=== PATIENT | female | born 1930 | race Caucasian/White ===

== ENCOUNTER 2018-12-07 16:04 | Observation (INO) | payer MEDICARE ==
[2018-12-07] MEDS ORDERED: Sodium Chloride 0.9% 1000 ML 1,000 ML IV SCH (17:00)
[2018-12-07 17:41] LABS: BASOPHIL % 0.5 % (0.0-0.4); Basophil (Absolute #) 0.03 (0-0.4); Eosinophil % 10.3 % (0.00-5.0); Eosinophil (Absolute #) 0.68 (0-0.5); Granulocyte Absolute (ANC) 1.82 (1.4-6.9); Granulocytes % 27.4 % (36.0-66.0); Hematocrit 36.8 % (35-47); Hemoglobin 11.4 gm/dl (12.0-16.0); Lymphocyte (Absolute #) 3.43 (1.0-4.6); Lymphocytes % 51.7 % (24.0-44.0); Mean Cell Volume 91.3 fl (78-100); Mean Platelet Volume 10.1 fl (6-9.5); Monocyte (Absolute #) 0.67 (0.0-1.3); Monocytes % 10.1 % (0.0-12.0); Platelet Count 225 K/mm3 (150-450); Red Blood Count 4.03 M/mm3 (4.1-5.4); White Blood Count 6.6 K/mm3 (4.0-10.5)
[2018-12-07 17:42] LABS: Mean Corpuscular Hemoglobin 28.2 pg (26-32)
[2018-12-07 17:54] LABS: ALBUMIN 4.4 g/dL (3.5-5.0); ALKALINE PHOSPHATASE 107 U/L (38-126); ANION GAP 14.6 MEQ/L (5-15); BLOOD UREA NITROGEN 10 mg/dL (7-17); CHLORIDE 102 mmol/L (98-107); Calcium 9.3 mg/dL (8.4-10.2); Carbon Dioxide 26 mmol/L (22-30); Creatinine 1 0.68 mg/dL (0.52-1.04); Glucose 257 mg/dL (74-106); SGOT/AST 46 U/L (14-36); SGPT/ALT 20 U/L (0-35); SODIUM 138 mmol/L (137-145)
[2018-12-07] MEDS: NovoLOG Insulin SQ PRN (18:03)
[2018-12-07] MEDS ORDERED: Ativan 0.5 MG PO PRN (18:30)
[2018-12-07] MEDS: Neurontin 400 MG PO SCH (21:00)
[2018-12-07] MEDS: ANTIVERT 25 MG PO SCH ×2 (21:00→21:02)
[2018-12-08 01:58] LABS: Appearance CLEAR (CLEAR); Bilirubin NEGATIVE (NEGATIVE); Blood NEGATIVE Ery/ul (0-5); Glucose >=500 mg/dL (NEGATIVE); Ketones NEGATIVE (NEGATIVE); Leukocyte Esterase MODERATE (NEGATIVE); Nitrite NEGATIVE (NEGATIVE); Protein,Urine Dip NEGATIVE (Negative); RBC 0-2 /HPF (0-2); Specific Gravity 1.008 (1.005-1.025); Urobilinogen NEGATIVE mg/dL (0-1); WBC 26-50 /HPF (0-5)
[2018-12-08 07:14] VITALS: BP 142/65; PULSE 65; O2SAT 95
[2018-12-08] MEDS ORDERED: NovoLOG Insulin SQ SCH (07:30)
--- NOTE | 2018-12-08 07:43 | PCM.HP.ADD ---
Addendum to History & Physical - History & Physical Addendum Addendum to History & Physical: This certifies that the History & Physical in the electronic chart reflects the current health status of the patient. If there are changes in the H&P these changes/exceptions are listed as follows.
--- NOTE | 2018-12-08 07:45 | PCM.NOTE ---
Date and Time: 12/08/18742 Subjective Assessment: doing ok, accuchecks are running high, no chest pain - Review of Systems Constitutional: No Fever, No Chills Eyes: No Symptoms Ears, Nose, & Throat: No Symptoms Respiratory: No Cough, No Short Of Breath Cardiac: No Chest Pain, No Edema, No Syncope Abdominal/Gastrointestinal: No Abdominal Pain, No Nausea, No Vomiting, No Diarrhea Genitourinary Symptoms: No Dysuria Musculoskeletal: No Back Pain, No Neck Pain Skin: No Rash Neurological: No Dizziness, No Focal Weakness, No Sensory Changes Psychological: No Symptoms Endocrine: No Symptoms Hematologic/Lymphatic: No Symptoms Immunological/Allergic: No Symptoms Objective Exam General Appearance: no apparent distress, alert Neurologic Exam: alert, oriented x 3, cooperative, normal mood/affect, nml cerebellar function, sensation nml, No motor deficits Skin Exam: normal color, warm, dry Eye Exam: PERRL, EOMI, eyes nml inspection Ears, Nose, Throat Exam: normal ENT inspection, pharynx normal, moist mucous membranes Neck Exam: normal inspection, non-tender, supple, full range of motion Respiratory Exam: normal breath sounds, lungs clear, No respiratory distress Cardiovascular Exam: regular rate/rhythm, normal heart sounds Gastrointestinal/Abdomen Exam: soft, No tenderness, No mass Extremity Exam: normal inspection, normal range of motion Back Exam: normal inspection, normal range of motion, No CVA tenderness, No vertebral tenderness Pelvic Exam: deferred Rectal Exam: deferred OBJECTIVE DATA Vital Signs: Vital Signs - 24 hr Temp Pulse Resp BP Pulse Ox 12/08/18 07:13 98.0 F 65 16 142/65 95 12/08/18 04:00 98.4 F 67 20 139/60 96 12/08/18 00:00 20 12/07/18 23:50 98.5 F 86 20 178/84 96 12/07/18 20:16 97.8 F 82 18 199/77 97 12/07/18 20:00 20 12/07/18 17:32 99 F 76 16 96 Pain Assessment - Last Documented Pain Scale Used [facility] Intake and Output: Intake & Output 12/05/18 12/06/18 12/07/18 12/08/18 11:59 11:59 11:59 11:59 Intake Total 1648 Output Total 1500 Balance 148 Weight 61 kg Lab Results: Accuchecks Date 12/07/18 Time 20:15 Accucheck Value: 175 Accucheck Value: 81 Lab Results-Last 24 Hours 12/07/18 12/07/18 12/07/18 Range/Units 17:30 17:30 17:30 WBC 6.6 (4.0-10.5) K/mm3 RBC 4.03 L (4.1-5.4) M/mm3 Hgb 11.4 L (12.0-16.0) gm/dl Hct 36.8 (35-47) % MCV 91.3 (78-100) fl MCH 28.2 (26-32) pg MCHC 31.0 L (32-36) g/dl RDW 14.0 (11.5-14.0) % Plt Count 225 (150-450) K/mm3 MPV 10.1 H (6-9.5) fl Gran % 27.4 L (36.0-66.0) % Eos # (Auto) 0.68 H (0-0.5) Absolute Lymphs (auto) 3.43 (1.0-4.6) Absolute Monos (auto) 0.67 (0.0-1.3) Lymphocytes % 51.7 H (24.0-44.0) % Monocytes % 10.1 (0.0-12.0) % Eosinophils % 10.3 H (0.00-5.0) % Basophils % 0.5 (0.0-0.4) % Absolute Granulocytes 1.82 (1.4-6.9) Basophils # 0.03 (0-0.4) Sodium 138 (137-145) mmol/L Potassium 4.0 (3.5-5.1) mmol/L Chloride 102 (98-107) mmol/L Carbon Dioxide 26 (22-30) mmol/L Anion Gap 14.6 (5-15) MEQ/L BUN 10 (7-17) mg/dL Creatinine 0.68 (0.52-1.04) mg/dL Estimated GFR > 60.0 ML/MIN Glucose 257 H (74-106) mg/dL Hemoglobin A1c (4.5-6.0) % Calcium 9.3 (8.4-10.2) mg/dL Total Bilirubin 0.30 (0.2-1.3) mg/dL AST 46 H (14-36) U/L ALT 20 (0-35) U/L Alkaline Phosphatase 107 (38-126) U/L Troponin I < 0.012 (0.000-0.034) ng/mL Serum Total Protein 8.0 (6.3-8.2) g/dL Albumin 4.4 (3.5-5.0) g/dL Urine Color (YELLOW) Urine Appearance (CLEAR) Urine pH (5-6) Ur Specific Pratt (1.005-1.025) Urine Protein (Negative) Urine Ketones (NEGATIVE) Urine Blood (0-5) Vinny/ul Urine Nitrite (NEGATIVE) Urine Bilirubin (NEGATIVE) Urine Urobilinogen (0-1) mg/dL Ur Leukocyte Esterase (NEGATIVE) Urine WBC (Auto) (0-5) /HPF Urine RBC (Auto) (0-2) /HPF U Epithel Cells (Auto) (FEW) /HPF Urine Bacteria (Auto) (NEGATIVE) /HPF Urine Culture Reflexed (NO) Urine Glucose (NEGATIVE) mg/dL 12/07/18 12/08/18 Range/Units 18:00 01:50 WBC (4.0-10.5) K/mm3 RBC (4.1-5.4) M/mm3 Hgb (12.0-16.0) gm/dl Hct (35-47) % MCV (78-100) fl MCH (26-32) pg MCHC (32-36) g/dl RDW (11.5-14.0) % Plt Count (150-450) K/mm3 MPV (6-9.5) fl Gran % (36.0-66.0) % Eos # (Auto) (0-0.5) Absolute Lymphs (auto) (1.0-4.6) Absolute Monos (auto) (0.0-1.3) Lymphocytes % (24.0-44.0) % Monocytes % (0.0-12.0) % Eosinophils % (0.00-5.0) % Basophils % (0.0-0.4) % Absolute Granulocytes (1.4-6.9) Basophils # (0-0.4) Sodium (137-145) mmol/L Potassium (3.5-5.1) mmol/L Chloride (98-107) mmol/L Carbon Dioxide (22-30) mmol/L Anion Gap (5-15) MEQ/L BUN (7-17) mg/dL Creatinine (0.52-1.04) mg/dL Estimated GFR ML/MIN Glucose (74-106) mg/dL Hemoglobin A1c 9.72 H (4.5-6.0) % Calcium (8.4-10.2) mg/dL Total Bilirubin (0.2-1.3) mg/dL AST (14-36) U/L ALT (0-35) U/L Alkaline Phosphatase (38-126) U/L Troponin I (0.000-0.034) ng/mL Serum Total Protein (6.3-8.2) g/dL Albumin (3.5-5.0) g/dL Urine Color STRAW (YELLOW) Urine Appearance CLEAR (CLEAR) Urine pH 6.0 (5-6) Ur Specific Pratt 1.008 (1.005-1.025) Urine Protein NEGATIVE (Negative) Urine Ketones NEGATIVE (NEGATIVE) Urine Blood NEGATIVE (0-5) Vinny/ul Urine Nitrite NEGATIVE (NEGATIVE) Urine Bilirubin NEGATIVE (NEGATIVE) Urine Urobilinogen NEGATIVE (0-1) mg/dL Ur Leukocyte Esterase MODERATE (NEGATIVE) Urine WBC (Auto) 26-50 (0-5) /HPF Urine RBC (Auto) 0-2 (0-2) /HPF U Epithel Cells (Auto) NONE (FEW) /HPF Urine Bacteria (Auto) NONE (NEGATIVE) /HPF Urine Culture Reflexed YES (NO) Urine Glucose >=500 (NEGATIVE) mg/dL Radiology Exams: Radiology Procedures Category Date Time Status CHEST 2 VIEWS (PA AND LAT) Routine Exams 12/07/18 23:30 Taken Assessment/Plan (1) UTI (urinary tract infection) Current Visit: Yes Status: Acute Qualifiers: Urinary tract infection type: acute pyelonephritis Qualified Code(s): N10 - Acute pyelonephritis Code(s): N39.0 - URINARY TRACT INFECTION, SITE NOT SPECIFIED (2) Chest pain in adult Current Visit: Yes Status: Resolved Code(s): R07.9 - CHEST PAIN, UNSPECIFIED (3) Hyperglycemia due to type 2 diabetes mellitus Current Visit: Yes Status: Acute Qualifiers: Diabetes mellitus care home insulin use: with care home use Qualified Code( s): E11.65 - Type 2 diabetes mellitus with hyperglycemia; Z79.4 - manager long term care ( current) use of insulin Code(s): E11.65 - TYPE 2 DIABETES MELLITUS WITH HYPERGLYCEMIA
[2018-12-08] MEDS: NovoLOG Insulin SQ PRN (08:06)
--- NOTE | 2018-12-08 08:48 | PCM.SSS ---
History of Present Illness - Chief Complaint Chief Complaint: uncontrolled blood sugars, off and on chest pain, History of Present Illness: is a 88 year old female c/o uncontrolled blood sugars and recurrent chest pain for few days - Review of Systems Constitutional: Lethargy, Weakness, No Fever, No Chills Eyes: No Symptoms Ears, Nose, & Throat: No Symptoms Respiratory: No Cough, No Short Of Breath Cardiac: Chest Pain, No Edema, No Syncope Abdominal/Gastrointestinal: No Abdominal Pain, No Nausea, No Vomiting, No Diarrhea Genitourinary Symptoms: No Dysuria Musculoskeletal: No Back Pain, No Neck Pain Skin: No Rash Neurological: No Dizziness, No Focal Weakness, No Sensory Changes Psychological: No Symptoms Endocrine: No Symptoms Hematologic/Lymphatic: No Symptoms Immunological/Allergic: No Symptoms Medications & Allergies Home Medications: Home Medication List Aspirin EC 325 mg [Ecotrin 325 MG] 325 mg PO DAILY 11/11/11 [History Confirmed 12/07/18] Gabapentin 300 mg [Neurontin 300 mg] 400 mg PO TID 11/11/11 [History Confirmed 12/07/18] Lorazepam 0.5 mg [Ativan 0.5 MG] 0.5 mg PO QHS PRN #10 tablet 07/17/14 [ Rx Confirmed 12/07/18] Meclizine HCl 25 mg [Antivert 25 mg] 25 mg PO BID 12/07/18 [History Confirmed 12/07/18] Ciprofloxacin [Cipro 500 MG] 500 mg PO BID #15 tablet 12/08/18 [Rx] Insulin Glargine,Hum.rec.anlog [Lantus Solostar] 15 unit SQ AC 30 Days #5 ml [Rx] Metformin HCl Xr 500 mg [Glucophage XR 500 MG] 500 mg PO DAILY 30 Days # 30 tab 12/08/18 [Rx] Allergies/Adverse Reactions: Allergies Allergy/AdvReac Type Severity Reaction Status Date / Time promethazine HCl AdvReac Mild Verified 07/17/14 07:40 [From Phenergan] - Past Medical History Past Medical History: Yes Neurological History: Dementia ENT History: Cataracts Cardiac History: No Pertinent History Respiratory History: No Pertinent History Endocrine Medical History: Diabetes Type II Musculoskelatal History: No Pertinent History, Osteoporosis GI Medical History: No Pertinent History History: No Pertinent History Pyscho-Social History: Depression Reproductive Disorders: No Pertinent History - Female History Are you now?: No - Past Surgical History Past Surgical History: Yes Neuro Surgical History: No Pertinent History Cardiac History: No Pertinent History Respiratory Surgery: No Pertinent History GI Surgical History: Appendectomy, Cholecystectomy Musculskeletal Surgical Hx: No Pertinent History Female Surgical History: Hysterectomy - Social History Smoking Status: Never smoker Exposure to second hand smoke: No Alcohol: None Drug Use: none - Physical Exam Vital Signs: Vital Signs - 24 hr Temp Pulse Resp BP Pulse Ox 12/08/18 07:13 98.0 F 65 16 142/65 95 12/08/18 04:00 98.4 F 67 20 139/60 96 12/08/18 00:00 20 12/07/18 23:50 98.5 F 86 20 178/84 96 12/07/18 20:16 97.8 F 82 18 199/77 97 12/07/18 20:00 20 12/07/18 17:32 99 F 76 16 96 General Appearance: no apparent distress, alert Neurologic Exam: alert, oriented x 3, cooperative, normal mood/affect, nml cerebellar function, nml station & gait, sensation nml, No motor deficits Eye Exam: PERRL/EOMI, eyes nml inspection Ears, Nose, Throat Exam: normal ENT inspection, TMs normal, pharynx normal, moist mucous membranes Neck Exam: normal inspection, non-tender, supple, full range of motion Respiratory Exam: normal breath sounds, lungs clear, No respiratory distress Cardiovascular Exam: regular rate/rhythm, normal heart sounds, normal peripheral pulses Gastrointestinal/Abdomen Exam: soft, normal bowel sounds, No tenderness, No mass Back Exam: normal inspection, normal range of motion, No CVA tenderness, No vertebral tenderness Extremity Exam: normal inspection, normal range of motion, pelvis stable Skin Exam: normal color, warm, dry, No rash Lymphatic Exam: No adenopathy Results - Labs Lab/Micro Results: Accuchecks Date 12/08/18 Date 12/07/18 Time 08:08 Time 20:15 Accucheck Value: 203 Accucheck Value: 175 Accucheck Value: 81 Lab Results-Last 24 Hours 12/07/18 12/07/18 12/07/18 Range/Units 17:30 17:30 17:30 WBC 6.6 (4.0-10.5) K/mm3 RBC 4.03 L (4.1-5.4) M/mm3 Hgb 11.4 L (12.0-16.0) gm/dl Hct 36.8 (35-47) % MCV 91.3 (78-100) fl MCH 28.2 (26-32) pg MCHC 31.0 L (32-36) g/dl RDW 14.0 (11.5-14.0) % Plt Count 225 (150-450) K/mm3 MPV 10.1 H (6-9.5) fl Gran % 27.4 L (36.0-66.0) % Eos # (Auto) 0.68 H (0-0.5) Absolute Lymphs (auto) 3.43 (1.0-4.6) Absolute Monos (auto) 0.67 (0.0-1.3) Lymphocytes % 51.7 H (24.0-44.0) % Monocytes % 10.1 (0.0-12.0) % Eosinophils % 10.3 H (0.00-5.0) % Basophils % 0.5 (0.0-0.4) % Absolute Granulocytes 1.82 (1.4-6.9) Basophils # 0.03 (0-0.4) Sodium 138 (137-145) mmol/L Potassium 4.0 (3.5-5.1) mmol/L Chloride 102 (98-107) mmol/L Carbon Dioxide 26 (22-30) mmol/L Anion Gap 14.6 (5-15) MEQ/L BUN 10 (7-17) mg/dL Creatinine 0.68 (0.52-1.04) mg/dL Estimated GFR > 60.0 ML/MIN Glucose 257 H (74-106) mg/dL Hemoglobin A1c (4.5-6.0) % Calcium 9.3 (8.4-10.2) mg/dL Total Bilirubin 0.30 (0.2-1.3) mg/dL AST 46 H (14-36) U/L ALT 20 (0-35) U/L Alkaline Phosphatase 107 (38-126) U/L Troponin I < 0.012 (0.000-0.034) ng/mL Serum Total Protein 8.0 (6.3-8.2) g/dL Albumin 4.4 (3.5-5.0) g/dL Urine Color (YELLOW) Urine Appearance (CLEAR) Urine pH (5-6) Ur Specific [place] (1.005-1.025) Urine Protein (Negative) Urine Ketones (NEGATIVE) Urine Blood (0-5) Vinny/ul Urine Nitrite (NEGATIVE) Urine Bilirubin (NEGATIVE) Urine Urobilinogen (0-1) mg/dL Ur Leukocyte Esterase (NEGATIVE) Urine WBC (Auto) (0-5) /HPF Urine RBC (Auto) (0-2) /HPF U Epithel Cells (Auto) (FEW) /HPF Urine Bacteria (Auto) (NEGATIVE) /HPF Urine Culture Reflexed (NO) Urine Glucose (NEGATIVE) mg/dL 12/07/18 12/08/18 Range/Units 18:00 01:50 WBC (4.0-10.5) K/mm3 RBC (4.1-5.4) M/mm3 Hgb (12.0-16.0) gm/dl Hct (35-47) % MCV (78-100) fl MCH (26-32) pg MCHC (32-36) g/dl RDW (11.5-14.0) % Plt Count (150-450) K/mm3 MPV (6-9.5) fl Gran % (36.0-66.0) % Eos # (Auto) (0-0.5) Absolute Lymphs (auto) (1.0-4.6) Absolute Monos (auto) (0.0-1.3) Lymphocytes % (24.0-44.0) % Monocytes % (0.0-12.0) % Eosinophils % (0.00-5.0) % Basophils % (0.0-0.4) % Absolute Granulocytes (1.4-6.9) Basophils # (0-0.4) Sodium (137-145) mmol/L Potassium (3.5-5.1) mmol/L Chloride (98-107) mmol/L Carbon Dioxide (22-30) mmol/L Anion Gap (5-15) MEQ/L BUN (7-17) mg/dL Creatinine (0.52-1.04) mg/dL Estimated GFR ML/MIN Glucose (74-106) mg/dL Hemoglobin A1c 9.72 H (4.5-6.0) % Calcium (8.4-10.2) mg/dL Total Bilirubin (0.2-1.3) mg/dL AST (14-36) U/L ALT (0-35) U/L Alkaline Phosphatase (38-126) U/L Troponin I (0.000-0.034) ng/mL Serum Total Protein (6.3-8.2) g/dL Albumin (3.5-5.0) g/dL Urine Color STRAW (YELLOW) Urine Appearance CLEAR (CLEAR) Urine pH 6.0 (5-6) Ur Specific [place] 1.008 (1.005-1.025) Urine Protein NEGATIVE (Negative) Urine Ketones NEGATIVE (NEGATIVE) Urine Blood NEGATIVE (0-5) Vinny/ul Urine Nitrite NEGATIVE (NEGATIVE) Urine Bilirubin NEGATIVE (NEGATIVE) Urine Urobilinogen NEGATIVE (0-1) mg/dL Ur Leukocyte Esterase MODERATE (NEGATIVE) Urine WBC (Auto) 26-50 (0-5) /HPF Urine RBC (Auto) 0-2 (0-2) /HPF U Epithel Cells (Auto) NONE (FEW) /HPF Urine Bacteria (Auto) NONE (NEGATIVE) /HPF Urine Culture Reflexed YES (NO) Urine Glucose >=500 (NEGATIVE) mg/dL Accuchecks Date 12/08/18 Date 12/07/18 Time 08:08 Time 20:15 Accucheck Value: 203 Accucheck Value: 175 Accucheck Value: 81 - Radiology Impressions Radiology Exams & Impressions: Radiology Procedures Category Date Time Status CHEST 2 VIEWS (PA AND LAT) Routine Exams 12/07/18 23:30 Taken Assessment/Plan (1) UTI (urinary tract infection) Current Visit: Yes Status: Acute Qualifiers: Urinary tract infection type: acute pyelonephritis Qualified Code(s): N10 - Acute pyelonephritis Assessment & Plan: Last Vital Signs Temp 98.0 F 12/08/18 07:13 Pulse 65 12/08/18 07:13 Resp 16 12/08/18 07:13 BP 142/65 12/08/18 07:13 Pulse Ox 95 12/08/18 07:13 Allergies promethazine HCl [From Phenergan] Adverse Reaction (Mild, Verified 07/17/14 07: 40) hallucinating Active Medications Aspirin (Ecotrin 325 Mg) 325 mg PO DAILY [facility] Stop: 01/07/19 09:59 Ciprofloxacin (Cipro 500 Mg) 500 mg PO BID [facility] Stop: 01/07/19 09:59 Gabapentin (Neurontin 400 Mg) 400 mg PO TID [facility] Stop: 01/06/19 21:59 Last Admin: 12/07/18 21:00 Dose: 400 mg Sodium Chloride (Sodium Chloride 0.9% 1000 Ml) 1,000 mls @ 40 mls/hr IV .Q24H [facility] Stop: 01/06/19 16:59 Last Admin: 12/07/18 18:03 Dose: 40 mls/hr Insulin Aspart (Novolog Insulin) 0 unit SQ UD PRN PRN Reason: HYPERGLYCEMIA Stop: 01/06/19 16:43 Last Admin: 12/08/18 08:06 Dose: 5 unit Insulin Aspart (Novolog Insulin) 10 unit SQ TIDAC [facility] Stop: 01/07/19 07:29 Last Admin: 12/08/18 08:17 Dose: Not Given Lorazepam (Ativan 0.5 Mg) 0.5 mg PO HS PRN PRN PRN Reason: INSOMNIA Stop: 01/06/19 18:29 Meclizine HCl (Antivert 25 Mg) 25 mg PO BID [facility] Stop: 01/06/19 18:59 Last Admin: 12/07/18 21:02 Dose: Not Given Intake & Output 12/07/18 12/08/18 11:59 11:59 Intake Total 1648 Output Total 1500 Balance 148 Weight 61 kg Orders 12/07/18 16:43 ACCUCHECK [Accucheck] ACHS Telemetry q6h 12/07/18 16:44 Insulin Aspart [NovoLOG Insulin] See Dose Instructions SQ UD PRN 12/07/18 16:47 Miscellaneous Nursing Order ROUTINE 12/07/18 17:00 NaCl 0.9% 1000 ml [Sodium Chloride 0.9% 1000 ML] 1,000 ml IV 40 mls/hr 12/07/18 17:03 Place in Observation ROUTINE 12/07/18 17:59 Market Analysis Director/Discharge Plan ROUTINE 12/07/18 18:30 Lorazepam 0.5 mg [Ativan 0.5 MG] 0.5 mg PO HS PRN PRN 12/07/18 19:00 Meclizine HCl 25 mg [Antivert 25 mg] 25 mg PO BID 12/07/18 22:00 Gabapentin 400 mg [Neurontin 400 MG] 400 mg PO TID 12/07/18 23:30 CHEST 2 VIEWS (PA AND LAT) Routine 12/08/18 01:50 CULTURE,URINE Routine 12/08/18 07:30 Insulin Aspart [NovoLOG Insulin] 10 unit SQ TIDAC 12/08/18 10:00 Aspirin EC 325 mg [Ecotrin 325 MG] 325 mg PO DAILY Ciprofloxacin [Cipro 500 MG] 500 mg PO BID 12/08/18 Breakfast 1800 Calorie ADA Lab Tests 12/07/18 12/07/18 12/07/18 17:30 17:30 17:30 WBC 6.6 RBC 4.03 L Hgb 11.4 L Hct 36.8 MCV 91.3 MCH 28.2 MCHC 31.0 L RDW 14.0 Plt Count 225 MPV 10.1 H Gran % 27.4 L Eos # (Auto) 0.68 H Absolute Lymphs (auto) 3.43 Absolute Monos (auto) 0.67 Lymphocytes % 51.7 H Monocytes % 10.1 Eosinophils % 10.3 H Basophils % 0.5 Absolute Granulocytes 1.82 Basophils # 0.03 Sodium 138 Potassium 4.0 Chloride 102 Carbon Dioxide 26 Anion Gap 14.6 BUN 10 Creatinine 0.68 Estimated GFR > 60.0 Glucose 257 H Hemoglobin A1c Calcium 9.3 Total Bilirubin 0.30 AST 46 H ALT 20 Alkaline Phosphatase 107 Troponin I < 0.012 Serum Total Protein 8.0 Albumin 4.4 Urine Color Urine Appearance Urine pH Ur Specific [place] Urine Protein Urine Ketones Urine Blood Urine Nitrite Urine Bilirubin Urine Urobilinogen Ur Leukocyte Esterase Urine WBC (Auto) Urine RBC (Auto) U Epithel Cells (Auto) Urine Bacteria (Auto) Urine Culture Reflexed Urine Glucose 12/07/18 12/08/18 18:00 01:50 WBC RBC Hgb Hct MCV MCH MCHC RDW Plt Count MPV Gran % Eos # (Auto) Absolute Lymphs (auto) Absolute Monos (auto) Lymphocytes % Monocytes % Eosinophils % Basophils % Absolute Granulocytes Basophils # Sodium Potassium Chloride Carbon Dioxide Anion Gap BUN Creatinine Estimated GFR Glucose Hemoglobin A1c 9.72 H Calcium Total Bilirubin AST ALT Alkaline Phosphatase Troponin I Serum Total Protein Albumin Urine Color STRAW Urine Appearance CLEAR Urine pH 6.0 Ur Specific [place] 1.008 Urine Protein NEGATIVE Urine Ketones NEGATIVE Urine Blood NEGATIVE Urine Nitrite NEGATIVE Urine Bilirubin NEGATIVE Urine Urobilinogen NEGATIVE Ur Leukocyte Esterase MODERATE Urine WBC (Auto) 26-50 Urine RBC (Auto) 0-2 U Epithel Cells (Auto) NONE Urine Bacteria (Auto) NONE Urine Culture Reflexed YES Urine Glucose >=500 Code(s): N39.0 - URINARY TRACT INFECTION, SITE NOT SPECIFIED (2) Chest pain in adult Current Visit: Yes Status: Resolved Code(s): R07.9 - CHEST PAIN, UNSPECIFIED (3) Hyperglycemia due to type 2 diabetes mellitus Current Visit: Yes Status: Acute Qualifiers: Diabetes mellitus long term care social worker insulin use: with intermediate use Qualified Code( s): E11.65 - Type 2 diabetes mellitus with hyperglycemia; Z79.4 - terminal manager ( current) use of insulin Code(s): E11.65 - TYPE 2 DIABETES MELLITUS WITH HYPERGLYCEMIA Hospital Summary - Hospital Course Hospital Course: Chief Complaint Diagnosis hyperglycemia Allergies Allergy/AdvReac Type Severity Reaction Status Date / Time promethazine HCl AdvReac Mild Verified 07/17/14 07:40 [From Phenergan] Vital Signs (Last 24 hours) Temp Pulse Resp BP Pulse Ox 12/08/18 07:13 98.0 F 65 16 142/65 95 12/08/18 04:00 98.4 F 67 20 139/60 96 12/08/18 00:00 20 12/07/18 23:50 98.5 F 86 20 178/84 96 12/07/18 20:16 97.8 F 82 18 199/77 97 12/07/18 20:00 20 12/07/18 17:32 99 F 76 16 96 Home Medications Medication Instructions Recorded Confirmed Last Taken Type Insulin Aspart [Novolog] 10 unit SQ TIDAC 12/07/18 12/07/18 12/07/18 History Meclizine HCl 25 mg [Antivert 25 mg PO BID 12/07/18 12/07/18 12/06/18 History 25 mg] Current Medications Generic Name Dose Route Start Last Admin Trade Name Freq PRN Reason Stop Dose Admin Aspirin 325 mg 12/08/18 10:00 Ecotrin 325 Mg PO 01/07/19 09:59 DAILY ALEXANDRA Ciprofloxacin 500 mg 12/08/18 10:00 Cipro 500 Mg PO 01/07/19 09:59 BID ALEXANDRA Gabapentin 400 mg 12/07/18 22:00 12/07/18 21:00 Neurontin 400 Mg PO 01/06/19 21:59 400 mg TID ALEXANDRA Administration Sodium Chloride 1,000 mls @ 40 mls/hr 12/07/18 17:00 12/07/18 18:03 Sodium Chloride 0.9% 1000 Ml IV 01/06/19 16:59 40 mls/hr .Q24H ALEXANDRA Administration Insulin Aspart 0 unit 12/07/18 16:44 12/08/18 08:06 Novolog Insulin SQ 01/06/19 16:43 5 unit UD PRN Administration HYPERGLYCEMIA Insulin Aspart 10 unit 12/08/18 07:30 12/08/18 08:17 Novolog Insulin SQ 01/07/19 07:29 Not Given TIDAC ALEXANDRA Lorazepam 0.5 mg 12/07/18 18:30 Ativan 0.5 Mg PO 01/06/19 18:29 HS PRN PRN INSOMNIA Meclizine HCl 25 mg 12/07/18 19:00 12/07/18 21:02 Antivert 25 Mg PO 01/06/19 18:59 Not Given BID ALEXANDRA Intake & Output (Last 24 hours) 12/05/18 12/06/18 12/07/18 12/08/18 11:59 11:59 11:59 11:59 Intake Total 1648 Output Total 1500 Balance 148 Weight 61 kg Microbiology Results (Last 24 hours) 12/08/18 01:50 Clean Catch Midstream Urine Culture - Pending Laboratory Results (Last 24 hours) 12/08/18 12/07/18 12/07/18 01:50 18:00 17:30 WBC RBC Hgb Hct MCV MCH MCHC RDW Plt Count MPV Gran % Eos # (Auto) Absolute Lymphs (auto) Absolute Monos (auto) Lymphocytes % Monocytes % Eosinophils % Basophils % Absolute Granulocytes Basophils # Sodium Potassium Chloride Carbon Dioxide Anion Gap BUN Creatinine Estimated GFR Glucose Hemoglobin A1c 9.72 H Calcium Total Bilirubin AST ALT Alkaline Phosphatase Troponin I < 0.012 Serum Total Protein Albumin Urine Color STRAW Urine Appearance CLEAR Urine pH 6.0 Ur Specific [place] 1.008 Urine Protein NEGATIVE Urine Ketones NEGATIVE Urine Blood NEGATIVE Urine Nitrite NEGATIVE Urine Bilirubin NEGATIVE Urine Urobilinogen NEGATIVE Ur Leukocyte Esterase MODERATE Urine WBC (Auto) 26-50 Urine RBC (Auto) 0-2 U Epithel Cells (Auto) NONE Urine Bacteria (Auto) NONE Urine Culture Reflexed YES Urine Glucose >=500 12/07/18 12/07/18 17:30 17:30 WBC 6.6 RBC 4.03 L Hgb 11.4 L Hct 36.8 MCV 91.3 MCH 28.2 MCHC 31.0 L RDW 14.0 Plt Count 225 MPV 10.1 H Gran % 27.4 L Eos # (Auto) 0.68 H Absolute Lymphs (auto) 3.43 Absolute Monos (auto) 0.67 Lymphocytes % 51.7 H Monocytes % 10.1 Eosinophils % 10.3 H Basophils % 0.5 Absolute Granulocytes 1.82 Basophils # 0.03 Sodium 138 Potassium 4.0 Chloride 102 Carbon Dioxide 26 Anion Gap 14.6 BUN 10 Creatinine 0.68 Estimated GFR > 60.0 Glucose 257 H Hemoglobin A1c Calcium 9.3 Total Bilirubin 0.30 AST 46 H ALT 20 Alkaline Phosphatase 107 Troponin I Serum Total Protein 8.0 Albumin 4.4 Urine Color Urine Appearance Urine pH Ur Specific [place] Urine Protein Urine Ketones Urine Blood Urine Nitrite Urine Bilirubin Urine Urobilinogen Ur Leukocyte Esterase Urine WBC (Auto) Urine RBC (Auto) U Epithel Cells (Auto) Urine Bacteria (Auto) Urine Culture Reflexed Urine Glucose Orders (Last 24 hours) Category Date Time Status ACCUCHECK [Accucheck] ACHS Care 12/07/18 16:43 Active Miscellaneous Nursing Order ROUTINE Care 12/07/18 16:[address] in Observation ROUTINE Care 12/07/18 17:03 Active Telemetry q6h Care 12/07/18 16:43 Active Market Analysis Director/Discharge Plan ROUTINE Cons 12/07/18 17:59 Active 1800 Calorie ADA Diet 12/08/18 Breakfast Active CHEST 2 VIEWS (PA AND LAT) Routine Exams 12/07/18 23:30 Taken CBC W DIFF Routine Lab 12/07/18 17:30 Completed CMP Routine Lab 12/07/18 17:30 Completed CULTURE,URINE Routine Lab 12/08/18 01:50 Received HEMOGLOBIN A1C Urgent Lab 12/07/18 18:00 Completed TROPONIN Stat Lab 12/07/18 17:30 Completed UA W/RFX UR CULTURE Routine Lab 12/08/18 01:50 Completed Aspirin EC 325 mg [Ecotrin 325 MG] Med 12/08/18 10:00 Active 325 mg PO DAILY Ciprofloxacin [Cipro 500 MG] Med 12/08/18 10:00 Active 500 mg PO BID Gabapentin 400 mg [Neurontin 400 MG] Med 12/07/18 22:00 Active 400 mg PO TID Insulin Aspart [NovoLOG Insulin] Med 12/08/18 07:30 Active 10 unit SQ TIDAC Insulin Aspart [NovoLOG Insulin] Med 12/07/18 16:44 Active See Dose Instructions SQ UD PRN Lorazepam 0.5 mg [Ativan 0.5 MG] Med 12/07/18 18:30 Active 0.5 mg PO HS PRN PRN Meclizine HCl 25 mg [Antivert 25 mg] Med 12/07/18 19:00 Active 25 mg PO BID NaCl 0.9% 1000 ml [Sodium Chloride 0.9% 1000 ML] 1,000 Med 12/07/18 17:00 Active ml IV 40 mls/hr EKG ROUTINE RT 12/07/18 16:48 Completed Patient Care Notes (Last 24 hours) 12/07/18 18:04 Nursing Note by Vanesa Becerra pt adament that she will not take more than 5units of insulin at any given time , given 5units humolog insulin sq for bs 252. Initialized on 12/07/18 18:04 - END OF NOTE - Vitals & Intake/Output Vital Signs: Vital Signs Temperature 98.0 F 12/08/18 07:13 Pulse Rate 65 12/08/18 07:13 Respiratory Rate 16 12/08/18 07:13 Blood Pressure 142/65 12/08/18 07:13 O2 Sat by Pulse Oximetry 95 12/08/18 07:13 Intake & Output: Intake & Output 12/05/18 12/06/18 12/07/18 12/08/18 11:59 11:59 11:59 11:59 Intake Total 1648 Output Total 1500 Balance 148 Weight 61 kg - Lab Result Diagrams: 12/07/18 17:30 12/07/18 17:30 Lab Results-Last 24 Hrs: Accuchecks Date 12/08/18 Date 12/07/18 Time 08:08 Time 20:15 Accucheck Value: 203 Accucheck Value: 175 Accucheck Value: 81 Lab Results-Last 24 Hours 12/07/18 12/07/18 12/07/18 Range/Units 17:30 17:30 17:30 WBC 6.6 (4.0-10.5) K/mm3 RBC 4.03 L (4.1-5.4) M/mm3 Hgb 11.4 L (12.0-16.0) gm/dl Hct 36.8 (35-47) % MCV 91.3 (78-100) fl MCH 28.2 (26-32) pg MCHC 31.0 L (32-36) g/dl RDW 14.0 (11.5-14.0) % Plt Count 225 (150-450) K/mm3 MPV 10.1 H (6-9.5) fl Gran % 27.4 L (36.0-66.0) % Eos # (Auto) 0.68 H (0-0.5) Absolute Lymphs (auto) 3.43 (1.0-4.6) Absolute Monos (auto) 0.67 (0.0-1.3) Lymphocytes % 51.7 H (24.0-44.0) % Monocytes % 10.1 (0.0-12.0) % Eosinophils % 10.3 H (0.00-5.0) % Basophils % 0.5 (0.0-0.4) % Absolute Granulocytes 1.82 (1.4-6.9) Basophils # 0.03 (0-0.4) Sodium 138 (137-145) mmol/L Potassium 4.0 (3.5-5.1) mmol/L Chloride 102 (98-107) mmol/L Carbon Dioxide 26 (22-30) mmol/L Anion Gap 14.6 (5-15) MEQ/L BUN 10 (7-17) mg/dL Creatinine 0.68 (0.52-1.04) mg/dL Estimated GFR > 60.0 ML/MIN Glucose 257 H (74-106) mg/dL Hemoglobin A1c (4.5-6.0) % Calcium 9.3 (8.4-10.2) mg/dL Total Bilirubin 0.30 (0.2-1.3) mg/dL AST 46 H (14-36) U/L ALT 20 (0-35) U/L Alkaline Phosphatase 107 (38-126) U/L Troponin I < 0.012 (0.000-0.034) ng/mL Serum Total Protein 8.0 (6.3-8.2) g/dL Albumin 4.4 (3.5-5.0) g/dL Urine Color (YELLOW) Urine Appearance (CLEAR) Urine pH (5-6) Ur Specific [place] (1.005-1.025) Urine Protein (Negative) Urine Ketones (NEGATIVE) Urine Blood (0-5) Vinny/ul Urine Nitrite (NEGATIVE) Urine Bilirubin (NEGATIVE) Urine Urobilinogen (0-1) mg/dL Ur Leukocyte Esterase (NEGATIVE) Urine WBC (Auto) (0-5) /HPF Urine RBC (Auto) (0-2) /HPF U Epithel Cells (Auto) (FEW) /HPF Urine Bacteria (Auto) (NEGATIVE) /HPF Urine Culture Reflexed (NO) Urine Glucose (NEGATIVE) mg/dL 12/07/18 12/08/18 Range/Units 18:00 01:50 WBC (4.0-10.5) K/mm3 RBC (4.1-5.4) M/mm3 Hgb (12.0-16.0) gm/dl Hct (35-47) % MCV (78-100) fl MCH (26-32) pg MCHC (32-36) g/dl RDW (11.5-14.0) % Plt Count (150-450) K/mm3 MPV (6-9.5) fl Gran % (36.0-66.0) % Eos # (Auto) (0-0.5) Absolute Lymphs (auto) (1.0-4.6) Absolute Monos (auto) (0.0-1.3) Lymphocytes % (24.0-44.0) % Monocytes % (0.0-12.0) % Eosinophils % (0.00-5.0) % Basophils % (0.0-0.4) % Absolute Granulocytes (1.4-6.9) Basophils # (0-0.4) Sodium (137-145) mmol/L Potassium (3.5-5.1) mmol/L Chloride (98-107) mmol/L Carbon Dioxide (22-30) mmol/L Anion Gap (5-15) MEQ/L BUN (7-17) mg/dL Creatinine (0.52-1.04) mg/dL Estimated GFR ML/MIN Glucose (74-106) mg/dL Hemoglobin A1c 9.72 H (4.5-6.0) % Calcium (8.4-10.2) mg/dL Total Bilirubin (0.2-1.3) mg/dL AST (14-36) U/L ALT (0-35) U/L Alkaline Phosphatase (38-126) U/L Troponin I (0.000-0.034) ng/mL Serum Total Protein (6.3-8.2) g/dL Albumin (3.5-5.0) g/dL Urine Color STRAW (YELLOW) Urine Appearance CLEAR (CLEAR) Urine pH 6.0 (5-6) Ur Specific [place] 1.008 (1.005-1.025) Urine Protein NEGATIVE (Negative) Urine Ketones NEGATIVE (NEGATIVE) Urine Blood NEGATIVE (0-5) Vinny/ul Urine Nitrite NEGATIVE (NEGATIVE) Urine Bilirubin NEGATIVE (NEGATIVE) Urine Urobilinogen NEGATIVE (0-1) mg/dL Ur Leukocyte Esterase MODERATE (NEGATIVE) Urine WBC (Auto) 26-50 (0-5) /HPF Urine RBC (Auto) 0-2 (0-2) /HPF U Epithel Cells (Auto) NONE (FEW) /HPF Urine Bacteria (Auto) NONE (NEGATIVE) /HPF Urine Culture Reflexed YES (NO) Urine Glucose >=500 (NEGATIVE) mg/dL Micro Results-Entire Visit: Accuchecks Date 12/08/18 Date 12/07/18 Time 08:08 Time 20:15 Accucheck Value: 203 Accucheck Value: 175 Accucheck Value: 81 - Radiology Exams Ordered Rad Exams-Entire Visit: Radiology Procedures Category Date Time Status CHEST 2 VIEWS (PA AND LAT) Routine Exams 12/07/18 23:30 Taken - Procedures and Test Procedures and Tests throughout Hospitalization: Therapy Orders & Screens 12/07/18 16:48 EKG ROUTINE Comment: - Discharge Discharge Date: 12/08/18 Disposition: Home, Self-Care Condition: Stable Prescriptions: New Ciprofloxacin [Cipro 500 MG] 500 mg PO BID #15 tablet Insulin Glargine,Hum.rec.anlog [Lantus Solostar] 15 unit SQ AC 30 Days #5 ml Metformin HCl Xr 500 mg [Glucophage XR 500 MG] 500 mg PO DAILY 30 Days #30 tab Continue Gabapentin 300 mg [Neurontin 300 mg] 400 mg PO TID Aspirin EC 325 mg [Ecotrin 325 MG] 325 mg PO DAILY Lorazepam 0.5 mg [Ativan 0.5 MG] 0.5 mg PO QHS PRN #10 tablet PRN Reason: Anxiety Meclizine HCl 25 mg [Antivert 25 mg] 25 mg PO BID Discontinued Insulin Aspart [Novolog] 10 unit SQ TIDAC Follow up with: PETRA ANDERSON MD [Primary Care Provider] - 1 Week
[2018-12-08] MEDS: Neurontin 400 MG PO SCH (09:34)
[2018-12-08] MEDS: ANTIVERT 25 MG PO SCH (09:34)
--- NOTE | 2018-12-08 09:51 | XRAY ---
Indication: Chest pain. Uncontrolled diabetes. Comparison: July 17, 2014. PA/lateral chest again hyperinflated with a few incidental calcified granulomas. New left base subsegmental atelectasis/scarring. Remaining heart and lungs unremarkable. Scattered aortic calcifications. Bony thorax intact again with mild osteopenia, degenerative changes, and scoliosis. Impression: Nonacute chest with chronic features.
[2018-12-08] MEDS ORDERED: Cipro 500 MG PO SCH (10:00)
[2018-12-08] MEDS ORDERED: Ecotrin 325 MG PO SCH (10:00)
== END 2018-12-08 11:00 | disposition home or self-care (01) ==
LOC: MED SURG 17:03
PROVIDERS: ADMIT General Practice; ATTEND General Practice
DX: N39.0 Urinary tract infection, site not specified (principal); E11.65 Type 2 diabetes mellitus with hyperglycemia; R07.9 Chest pain, unspecified; I10 Essential (primary) hypertension; Z79.899 Other long term (current) drug therapy
CPT/HCPCS: 36415; 71046; 80053; 81001; 82962; 83036; 84484; 85025; 87086; 93005; 93268; G0378; A9270-GY

== ENCOUNTER 2019-05-10 20:42 | Emergency (ER) | payer MEDICARE ==
[2019-05-10] MEDS ORDERED: Sodium Chloride 0.9% 1000 ML 1,000 ML IV STA (21:39)
--- NOTE | 2019-05-10 21:46 | ERPHSYRPT ---
- History of Present Illness Time Seen by Provider: 05/10/19 21:05 Source: patient Exam Limitations: no limitations Patient Subjective Stated Complaint: pt alert and oriented, pt states that she has felt generally ill for three days. pt states she is a diabetic and her blood sugar has been high, states she feels generaly tired. Triage Nursing Assessment: pt alert and oriented states she has no pain but feels generally ill. Physician History: Patient has had generalized weakness over the past three days. Patient has not been evaluated or treated prior to coming into the emergency department. Patient has high blood sugars over the past few days, but has been taking her medications as instructed. No recent change in her medications Timing/Duration: day(s) (3) Severity: moderate Modifying Factors: Improves With: rest. Worsens With: movement Associated Symptoms: weakness (generalized), No nausea, No vomiting, No abdominal pain, No shortness of breath, No heartburn, No diaphoresis, No cough, No chills, No chest pain, No fever, No headaches, No loss of appetite, No malaise, No rash, No syncope, No seizure Allergies/Adverse Reactions: promethazine HCl [From Phenergan] Adverse Reaction (Mild, Verified 05/10/19 21: 06) hallucinating Home Medications: Aspirin EC 325 mg [Ecotrin 325 MG] 325 mg PO DAILY 11/11/11 [History] Gabapentin 300 mg [Neurontin 300 mg] 400 mg PO TID 11/11/11 [History] Meclizine HCl 25 mg [Antivert 25 mg] 25 mg PO BID 12/07/18 [History] Hx Tetanus, Diphtheria Vaccination/Date Given: No Hx Influenza Vaccination/Date Given: Yes Hx Pneumococcal Vaccination/Date Given: No - Review of Systems Constitutional: Fatigue, Weakness (generalized), No Fever, No Chills Eyes: No Eye Pain, No Vision Changes Ears, Nose, & Throat: No Nose Congestion, No Nose Discharge, No Epistaxis, No Throat Pain, No Throat Swelling, No Painful Swallowing Respiratory: No Cough, No Dyspnea Cardiac: No Chest Pain, No Edema, No Syncope Abdominal/Gastrointestinal: No Abdominal Pain, No Nausea, No Vomiting, No Diarrhea, No Hematemesis, No Hematochezia, No Melena Genitourinary Symptoms: No Dysuria, No Hematuria, No Flank Pain Musculoskeletal: No Back Pain, No Neck Pain, No Fall Skin: No Rash Neurological: No Dizziness, No Focal Weakness, No Headache, No Parasthesia, No Seizure, No Sensory Changes Psychological: No Emotional Lability Endocrine: No Excessive Sweating Hematologic/Lymphatic: No Easy Bleeding, No Easy Bruising All Other Systems: Reviewed and Negative - Past Medical History Pertinent Past Medical History: Yes Neurological History: Dementia ENT History: Cataracts Cardiac History: No Pertinent History Respiratory History: No Pertinent History Endocrine Medical History: Diabetes Type II Musculoskeletal History: No Pertinent History, Osteoporosis GI Medical History: No Pertinent History History: No Pertinent History Psycho-Social History: Depression Female Reproductive Disorders: No Pertinent History - Past Surgical History Past Surgical History: Yes Neuro Surgical History: No Pertinent History Cardiac: No Pertinent History Respiratory: No Pertinent History Gastrointestinal: Appendectomy, Cholecystectomy Musculoskeletal: No Pertinent History Female Surgical History: Hysterectomy - Social History Smoking Status: Never smoker Exposure to second hand smoke: No Drug Use: none Patient Lives Alone: Yes - Nursing Vital Signs Nursing Vital Signs: Initial Vital Signs Temperature 97.6 F 05/10/19 20:55 Pulse Rate 97 H 05/10/19 20:55 Respiratory Rate 18 05/10/19 20:55 Blood Pressure 167/69 05/10/19 20:55 O2 Sat by Pulse Oximetry 97 05/10/19 20:55 Pain Scale Pain Intensity 0 - Physical Exam General Appearance: no apparent distress, alert Eye Exam: PERRL/EOMI, eyes nml inspection Ears, Nose, Throat Exam: normal ENT inspection, TMs normal, pharynx normal, moist mucous membranes Neck Exam: normal inspection, non-tender, supple, full range of motion Respiratory Exam: normal breath sounds, lungs clear, airway intact, No respiratory distress, No diminished breath sounds, No accessory muscle use, No crackles/rales, No rhonchi, No wheezing, No stridor Cardiovascular Exam: regular rate/rhythm, normal heart sounds, normal peripheral pulses, capillary refill <2 sec, No murmur, No friction rub Gastrointestinal/Abdomen Exam: soft, normal bowel sounds, No tenderness, No distention, No mass, No rebound Back Exam: normal inspection, normal range of motion, No CVA tenderness, No vertebral tenderness Extremity Exam: normal inspection, normal range of motion, pelvis stable Neurologic Exam: alert, oriented x 3, cooperative, [employer]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, normal mood/affect, nml station & gait, sensation nml, No motor deficits Skin Exam: normal color, warm, dry, No rash, No petechiae, No jaundice, No cyanosis Lymphatic Exam: No adenopathy SpO2 Interpretation: normal SpO2: 97 O2 Delivery: Room Air - Course Nursing assessment & vital signs reviewed: Yes EKG Interpreted by Me: RATE (100), Sinus Rhythm, NORMAL AXIS, NORMAL INTERVALS, NORMAL QRS, NORMAL ST-T, Other (1st Degree A-V block; no significant EKG changes other than nonspecific T wave changes in the lateral leads in comparison to EKG from 12/07/2018) - Radiology Exams Chest X-ray Interpretation: Interpreted by me, Reviewed by me, Negative, No Pneumonia , No Pneumothorax, Nml Heart Size, No Infiltrates, Nml Mediastinum, Other ( atelectasis LLL; fibrosis scattered throughout; scattered granulomas) Ordered Tests: Active Orders 24 hr Category Date Time Status Health Informatics Advisor STAT Care 05/10/19 21:41 Active EKG-ER Only STAT Care 05/10/19 21:39 Active IV Insertion STAT Care 05/10/19 21:39 Active Pulse Oximetry (ED) STAT Care 05/10/19 21:39 Active CHEST 1 VIEW (PORTABLE) Stat Exams 05/11/19 00:10 Ordered AMYLASE Stat Lab 05/10/19 22:10 Completed BLOOD CULTURE Stat Lab 05/10/19 20:10 Received CBC W DIFF Stat Lab 05/10/19 22:10 Completed CMP Stat Lab 05/10/19 22:10 Completed CULTURE,URINE Stat Lab 05/10/19 22:30 Received LIPASE Stat Lab 05/10/19 22:10 Completed Lactic Acid Stat Lab 05/10/19 22:20 Results MAGNESIUM Stat Lab 05/10/19 22:10 Completed NT PRO BNP Stat Lab 05/10/19 22:10 Completed PROTIME WITH INR Stat Lab 05/10/19 22:10 Completed PTT Stat Lab 05/10/19 22:10 Completed TROPONIN Q3H Lab 05/10/19 22:10 Completed TROPONIN Q3H Lab 05/11/19 00:45 Ordered TROPONIN Q3H Lab 05/11/19 03:45 Ordered TROPONIN Q3H Lab 05/11/19 06:45 Ordered TROPONIN Q3H Lab 05/11/19 09:45 Ordered UA W/RFX UR CULTURE Stat Lab 05/10/19 22:30 Completed VENOUS BLOOD GAS Stat Lab 05/10/19 22:20 Results Medication Summary Generic Name Dose Route Start Last Admin Trade Name Sirena PRN Reason Stop Dose Admin Ceftriaxone Sodium/Dextrose 1 g in 50 mls @ 100 mls/hr 05/10/19 23:58 Rocephin 1 Gm-D5w 50 Ml Bag IV 05/11/19 00:27 STAT STA Discontinued Medications Generic Name Dose Route Start Last Admin Trade Name Sirena PRN Reason Stop Dose Admin Aspirin 324 mg 05/10/19 23:28 Baby Aspirin 81 Mg Chew PO 05/10/19 23:29 STAT ONE Aspirin Confirm 05/11/19 00:22 Baby Aspirin 81 Mg Chew Administered 05/11/19 00:23 Dose 324 mg .ROUTE .STK-MED ONE Enoxaparin Sodium 60 mg 05/10/19 23:32 Enoxaparin Sodium SQ 05/10/19 23:33 STAT ONE Enoxaparin Sodium Confirm 05/11/19 00:22 Enoxaparin Sodium Administered 05/11/19 00:23 Dose 80 mg SQ .STK-MED ONE Sodium Chloride 1,000 mls @ 999 mls/hr 05/10/19 21:39 05/10/19 22:58 Sodium Chloride 0.9% 1000 Ml IV 05/10/19 22:39 Infused .Q1H1M STA Infusion Sodium Chloride Confirm 05/10/19 21:55 Sodium Chloride 0.9% 1000 Ml Administered 05/10/19 21:56 Dose 1,000 mls @ ud .ROUTE .STK-MED ONE Magnesium Sulfate/Dextrose 100 mls @ 200 mls/hr 05/10/19 23:37 Magnesium 1 Gm / 100 Ml D5w IV 05/11/19 00:06 STAT ONE Magnesium Sulfate/Dextrose Confirm 05/11/19 00:23 Magnesium 1 Gm / 100 Ml D5w Administered 05/11/19 00:24 Dose 100 mls @ ud IV .STK-MED ONE Ceftriaxone Sodium/Dextrose Confirm 05/11/19 00:23 Rocephin 1 Gm-D5w 50 Ml Bag Administered 05/11/19 00:24 Dose 1 g in 50 mls @ ud IV .STK-MED ONE Lorazepam 0.5 mg 05/11/19 00:24 Ativan 2 Mg/1 Ml Vial IV 05/11/19 00:25 STAT ONE Potassium Chloride 40 meq 05/10/19 23:35 Klor Con 10 Meq PO 05/10/19 23:36 STAT ONE Potassium Chloride Confirm 05/11/19 00:22 Klor Con 10 Meq Administered 05/11/19 00:23 Dose 40 meq PO .STK-MED ONE Lab/Rad Data: Laboratory Result Diagrams 05/10/19 22:10 05/10/19 22:10 Laboratory Results 05/10/19 05/10/19 05/10/19 Range/Units 22:30 22:20 22:10 WBC (4.0-10.5) K/mm3 RBC (4.1-5.4) M/mm3 Hgb (12.0-16.0) gm/dl Hct (35-47) % MCV (78-100) fl MCH (26-32) pg MCHC (32-36) g/dl RDW (11.5-14.0) % Plt Count (150-450) K/mm3 MPV (6-9.5) fl Gran % (36.0-66.0) % Eos # (Auto) (0-0.5) Absolute Lymphs (auto) (1.0-4.6) Absolute Monos (auto) (0.0-1.3) Lymphocytes % (24.0-44.0) % Monocytes % (0.0-12.0) % Eosinophils % (0.00-5.0) % Basophils % (0.0-0.4) % Absolute Granulocytes (1.4-6.9) Basophils # (0-0.4) PT (9.95-12.35) SECONDS INR (0.8-3.0) APTT (25.3-37.0) SECONDS pO2/FiO2 Ratio 21 % VBG pH 7.47 H (7.32-7.42) VBG pCO2 at Pat Temp 39 L (42-55) mm/Hg VBG pO2 at Pat Temp 25 (25-40) mm/Hg VBG HCO3 28.4 H (22-28) meq/L VBG O2 Sat (Micheal) 60 L (95-100) VBG Base Excess 4.4 H (-2.0-2.0) VBG Hemoglobin 57 VBG Carboxyhemoglobin 4.2 (0.0-6.9) % T HGB POC Potassium 3.2 L (3.5-5.1) Sodium (137-145) mmol/L Potassium (3.5-5.1) mmol/L Chloride (98-107) mmol/L Carbon Dioxide (22-30) mmol/L Anion Gap (5-15) MEQ/L BUN (7-17) mg/dL Creatinine (0.52-1.04) mg/dL Estimated GFR ML/MIN Glucose (74-106) mg/dL Lactic Acid 2.2 H (0.4-2.0) Calcium (8.4-10.2) mg/dL Magnesium (1.6-2.3) mg/dL Total Bilirubin (0.2-1.3) mg/dL AST (14-36) U/L ALT (0-35) U/L Alkaline Phosphatase (38-126) U/L Troponin I (0.000-0.034) ng/mL NT-Pro-B Natriuret Pep (0-1800) pg/mL Serum Total Protein (6.3-8.2) g/dL Albumin (3.5-5.0) g/dL Amylase < 30 L (30-110) U/L Lipase 16 L (23-300) U/L Urine Color STRAW (YELLOW) Urine Appearance SLIGHTLY CLOUDY (CLEAR) Urine pH 5.0 (5-6) Ur Specific [place] 1.003 (1.005-1.025) Urine Protein NEGATIVE (Negative) Urine Ketones TRACE (NEGATIVE) Urine Blood SMALL (0-5) Vinny/ul Urine Nitrite NEGATIVE (NEGATIVE) Urine Bilirubin NEGATIVE (NEGATIVE) Urine Urobilinogen NEGATIVE (0-1) mg/dL Ur Leukocyte Esterase LARGE (NEGATIVE) Urine WBC (Auto) 26-50 (0-5) /HPF Urine RBC (Auto) 6-10 (0-2) /HPF U Hyaline Cast (Auto) 3-5 (0-2) /LPF U Epithel Cells (Auto) FEW (FEW) /HPF Unidentified Crystals 2-5 (NEGATIVE) /HPF Urine Mucus (Auto) SLIGHT (NEGATIVE) /HPF Urine Culture Reflexed NO (NO) Urine Glucose >=500 (NEGATIVE) mg/dL Influenza Type A Ag (NEGATIVE) Influenza Type B Ag (NEGATIVE) RSV (PCR) (Negative) 05/10/19 05/10/19 05/10/19 Range/Units 22:10 22:10 22:10 WBC (4.0-10.5) K/mm3 RBC (4.1-5.4) M/mm3 Hgb (12.0-16.0) gm/dl Hct (35-47) % MCV (78-100) fl MCH (26-32) pg MCHC (32-36) g/dl RDW (11.5-14.0) % Plt Count (150-450) K/mm3 MPV (6-9.5) fl Gran % (36.0-66.0) % Eos # (Auto) (0-0.5) Absolute Lymphs (auto) (1.0-4.6) Absolute Monos (auto) (0.0-1.3) Lymphocytes % (24.0-44.0) % Monocytes % (0.0-12.0) % Eosinophils % (0.00-5.0) % Basophils % (0.0-0.4) % Absolute Granulocytes (1.4-6.9) Basophils # (0-0.4) PT 11.3 (9.95-12.35) SECONDS INR 1.00 (0.8-3.0) APTT 26.1 (25.3-37.0) SECONDS pO2/FiO2 Ratio % VBG pH (7.32-7.42) VBG pCO2 at Pat Temp (42-55) mm/Hg VBG pO2 at Pat Temp (25-40) mm/Hg VBG HCO3 (22-28) meq/L VBG O2 Sat (Micheal) (95-100) VBG Base Excess (-2.0-2.0) VBG Hemoglobin VBG Carboxyhemoglobin (0.0-6.9) % T HGB POC Potassium (3.5-5.1) Sodium 133 L (137-145) mmol/L Potassium 3.4 L (3.5-5.1) mmol/L Chloride 96 L (98-107) mmol/L Carbon Dioxide 27 (22-30) mmol/L Anion Gap 14.0 (5-15) MEQ/L BUN 6 L (7-17) mg/dL Creatinine 0.72 (0.52-1.04) mg/dL Estimated GFR > 60.0 ML/MIN Glucose 329 H (74-106) mg/dL Lactic Acid (0.4-2.0) Calcium 8.7 (8.4-10.2) mg/dL Magnesium 1.5 L (1.6-2.3) mg/dL Total Bilirubin 0.50 (0.2-1.3) mg/dL AST 39 H (14-36) U/L ALT 13 (0-35) U/L Alkaline Phosphatase 114 (38-126) U/L Troponin I 0.378 H* (0.000-0.034) ng/mL NT-Pro-B Natriuret Pep 79013 H (0-1800) pg/mL Serum Total Protein 6.9 (6.3-8.2) g/dL Albumin 3.6 (3.5-5.0) g/dL Amylase (30-110) U/L Lipase (23-300) U/L Urine Color (YELLOW) Urine Appearance (CLEAR) Urine pH (5-6) Ur Specific [place] (1.005-1.025) Urine Protein (Negative) Urine Ketones (NEGATIVE) Urine Blood (0-5) Vinny/ul Urine Nitrite (NEGATIVE) Urine Bilirubin (NEGATIVE) Urine Urobilinogen (0-1) mg/dL Ur Leukocyte Esterase (NEGATIVE) Urine WBC (Auto) (0-5) /HPF Urine RBC (Auto) (0-2) /HPF U Hyaline Cast (Auto) (0-2) /LPF U Epithel Cells (Auto) (FEW) /HPF Unidentified Crystals (NEGATIVE) /HPF Urine Mucus (Auto) (NEGATIVE) /HPF Urine Culture Reflexed (NO) Urine Glucose (NEGATIVE) mg/dL Influenza Type A Ag (NEGATIVE) Influenza Type B Ag (NEGATIVE) RSV (PCR) (Negative) 05/10/19 05/10/19 Range/Units 22:10 22:00 WBC 8.1 (4.0-10.5) K/mm3 RBC 3.60 L (4.1-5.4) M/mm3 Hgb 10.1 L (12.0-16.0) gm/dl Hct 32.0 L (35-47) % MCV 88.9 (78-100) fl MCH 28.1 (26-32) pg MCHC 31.6 L (32-36) g/dl RDW 14.0 (11.5-14.0) % Plt Count 262 (150-450) K/mm3 MPV 10.2 H (6-9.5) fl Gran % 63.8 (36.0-66.0) % Eos # (Auto) 0.26 (0-0.5) Absolute Lymphs (auto) 1.86 (1.0-4.6) Absolute Monos (auto) 0.79 (0.0-1.3) Lymphocytes % 23.0 L (24.0-44.0) % Monocytes % 9.8 (0.0-12.0) % Eosinophils % 3.2 (0.00-5.0) % Basophils % 0.2 (0.0-0.4) % Absolute Granulocytes 5.15 (1.4-6.9) Basophils # 0.02 (0-0.4) PT (9.95-12.35) SECONDS INR (0.8-3.0) APTT (25.3-37.0) SECONDS pO2/FiO2 Ratio % VBG pH (7.32-7.42) VBG pCO2 at Pat Temp (42-55) mm/Hg VBG pO2 at Pat Temp (25-40) mm/Hg VBG HCO3 (22-28) meq/L VBG O2 Sat (Micheal) (95-100) VBG Base Excess (-2.0-2.0) VBG Hemoglobin VBG Carboxyhemoglobin (0.0-6.9) % T HGB POC Potassium (3.5-5.1) Sodium (137-145) mmol/L Potassium (3.5-5.1) mmol/L Chloride (98-107) mmol/L Carbon Dioxide (22-30) mmol/L Anion Gap (5-15) MEQ/L BUN (7-17) mg/dL Creatinine (0.52-1.04) mg/dL Estimated GFR ML/MIN Glucose (74-106) mg/dL Lactic Acid (0.4-2.0) Calcium (8.4-10.2) mg/dL Magnesium (1.6-2.3) mg/dL Total Bilirubin (0.2-1.3) mg/dL AST (14-36) U/L ALT (0-35) U/L Alkaline Phosphatase (38-126) U/L Troponin I (0.000-0.034) ng/mL NT-Pro-B Natriuret Pep (0-1800) pg/mL Serum Total Protein (6.3-8.2) g/dL Albumin (3.5-5.0) g/dL Amylase (30-110) U/L Lipase (23-300) U/L Urine Color (YELLOW) Urine Appearance (CLEAR) Urine pH (5-6) Ur Specific [place] (1.005-1.025) Urine Protein (Negative) Urine Ketones (NEGATIVE) Urine Blood (0-5) Vinny/ul Urine Nitrite (NEGATIVE) Urine Bilirubin (NEGATIVE) Urine Urobilinogen (0-1) mg/dL Ur Leukocyte Esterase (NEGATIVE) Urine WBC (Auto) (0-5) /HPF Urine RBC (Auto) (0-2) /HPF U Hyaline Cast (Auto) (0-2) /LPF U Epithel Cells (Auto) (FEW) /HPF Unidentified Crystals (NEGATIVE) /HPF Urine Mucus (Auto) (NEGATIVE) /HPF Urine Culture Reflexed (NO) Urine Glucose (NEGATIVE) mg/dL Influenza Type A Ag NEGATIVE (NEGATIVE) Influenza Type B Ag NEGATIVE (NEGATIVE) RSV (PCR) NEGATIVE (Negative) - Progress Progress: improved Progress Note: 05/10/19 23:33 Discussed the patient with Dr Fam Rdz, ED attending at [facility]. Dr Rdz accepted the patient for transfer to the emergency department and recommended giving the patient mg/kg Lovenox since she will most likely will not be going to the catheterization lab this evening. 05/11/19 00:25 Pteitn is feeling anxious. Patient also has signs of a UTI, low potassium and low magnesium, which all will be treated in the emergency department. Patient will be give Ativan 0.5mg IV times one. Counseled pt/family regarding: lab results, diagnosis, need for follow-up, rad results - Departure Departure Disposition: Transfer ([facility]) Clinical Impression: NSTEMI (non-ST elevated myocardial infarction), Hyperglycemia, Hypokalemia, Hypomagnesemia, Elevated blood pressure reading without diagnosis of hypertension UTI (urinary tract infection) Qualifiers: Urinary tract infection type: site unspecified Hematuria presence: without hematuria Qualified Code(s): N39.0 - Urinary tract infection, site not specified Condition: Fair Critical Care Time: Yes Critical Care Time(excluding separately billable procedures): Critical 30-74 mins Referrals: PETRA ANDERSON MD [Primary Care Provider] -
[2019-05-10] MEDS ORDERED: Sodium Chloride 0.9% 1000 ML 1,000 ML ONE (21:55)
[2019-05-10 22:19] LABS: Absolute Neutrophil Ct (ANC) 5.15 (1.4-6.9); BASOPHIL % 0.2 % (0.0-0.4); Basophil (Absolute #) 0.02 (0-0.4); Eosinophil % 3.2 % (0.00-5.0); Eosinophil (Absolute #) 0.26 (0-0.5); Hemoglobin 10.1 gm/dl (12.0-16.0); Lymphocyte (Absolute #) 1.86 (1.0-4.6); Mean Cell Volume 88.9 fl (78-100); Mean Corpuscular Hemoglobin 28.1 pg (26-32); Mean Corpuscular Hgb Concent. 31.6 g/dl (32-36); Mean Platelet Volume 10.2 fl (6-9.5); Monocyte (Absolute #) 0.79 (0.0-1.3); Monocytes % 9.8 % (0.0-12.0); Neutrophil % 63.8 % (36.0-66.0); Platelet Count 262 K/mm3 (150-450); White Blood Count 8.1 K/mm3 (4.0-10.5)
[2019-05-10 22:30] LABS: Lactic Acid 2.2 (0.4-2.0); VBG BASE EXCESS 4.4 (-2.0-2.0); VBG CARBOXYHEMOGLOBIN 4.2 % T HGB (0.0-6.9); VBG FIO2 21 %; VBG HCO3- 28.4 meq/L (22-28); VBG HEMOGLOBIN 57; VBG O2 SATURATION 60 (95-100); VBG PCO2 39 mm/Hg (42-55); VBG PO2 25 mm/Hg (25-40); VBG POTASSIUM 3.2 (3.5-5.1); VBG pH 7.47 (7.32-7.42)
[2019-05-10 22:32] LABS: PROTIME 11.3 SECONDS (9.95-12.35)
[2019-05-10 22:35] LABS: PTT 26.1 SECONDS (25.3-37.0)
[2019-05-10 22:38] LABS: AMYLASE < 30 U/L (30-110); LIPASE 16 U/L (23-300)
[2019-05-10 22:45] LABS: ALBUMIN 3.6 g/dL (3.5-5.0); ALKALINE PHOSPHATASE 114 U/L (38-126); BLOOD UREA NITROGEN 6 mg/dL (7-17); CHLORIDE 96 mmol/L (98-107); Calcium 8.7 mg/dL (8.4-10.2); Carbon Dioxide 27 mmol/L (22-30); Creatinine 1 0.72 mg/dL (0.52-1.04); Glucose 329 mg/dL (74-106); MAGNESIUM 1.5 mg/dL (1.6-2.3); NT PRO BNP 19700 pg/mL (0-1800); Potassium 3.4 mmol/L (3.5-5.1); SGOT/AST 39 U/L (14-36); SGPT/ALT 13 U/L (0-35); SODIUM 133 mmol/L (137-145); Total Protein 6.9 g/dL (6.3-8.2)
[2019-05-10 22:56] LABS: INFLUENZA A NEGATIVE (NEGATIVE); INFLUENZA B NEGATIVE (NEGATIVE)
[2019-05-10 22:57] LABS: RESPIRATORY SYNCTIAL VIRUS NEGATIVE (Negative)
[2019-05-10] MEDS ORDERED: BABY ASPIRIN 81 MG CHEW PO ONE (23:28)
[2019-05-10 23:31] LABS: Appearance SLIGHTLY CLOUDY (CLEAR); Bilirubin NEGATIVE (NEGATIVE); Blood SMALL Ery/ul (0-5); Epithelial Cells FEW /HPF (FEW); Glucose >=500 mg/dL (NEGATIVE); Ketones TRACE (NEGATIVE); Leukocyte Esterase LARGE (NEGATIVE); Mucus SLIGHT /HPF (NEGATIVE); Nitrite NEGATIVE (NEGATIVE); Protein,Urine Dip NEGATIVE (Negative); Specific Gravity 1.003 (1.005-1.025); Urobilinogen NEGATIVE mg/dL (0-1); WBC 26-50 /HPF (0-5)
[2019-05-10] MEDS ORDERED: ENOXAPARIN SODIUM SQ ONE (23:32)
[2019-05-10] MEDS ORDERED: Klor Con 10 MEQ PO ONE (23:35)
[2019-05-10] MEDS ORDERED: Magnesium 1 Gm / 100 Ml D5W*** 100 ML IV ONE (23:37)
[2019-05-10] MEDS ORDERED: ROCEPHIN 1 Gm-D5w 50 ml Bag** 1 G/50 ML IVPB IV STA (23:58)
[2019-05-11] MEDS ORDERED: BABY ASPIRIN 81 MG CHEW ONE (00:22)
[2019-05-11] MEDS ORDERED: Klor Con 10 MEQ PO ONE (00:22)
[2019-05-11] MEDS ORDERED: ENOXAPARIN SODIUM SQ ONE (00:22)
[2019-05-11] MEDS ORDERED: Magnesium 1 Gm / 100 Ml D5W*** 100 ML IV ONE (00:23)
[2019-05-11] MEDS ORDERED: ROCEPHIN 1 Gm-D5w 50 ml Bag** 1 G/50 ML IVPB IV ONE (00:23)
[2019-05-11] MEDS ORDERED: Ativan 2 MG/1 ML VIAL IV ONE ×2 (00:24→03:12)
[2019-05-11] MEDS ORDERED: Ativan 2 MG/1 ML VIAL ONE (00:38)
[2019-05-11 01:01] VITALS: O2SAT 94
[2019-05-11] MEDS ORDERED: DUONEB 0.5-3 MG/3 ml Neb IH ONE ×2 (01:11→01:13)
[2019-05-11] MEDS ORDERED: Lasix 40 MG/4 ML ONE (01:12)
[2019-05-11 02:02] LABS: Lactic Acid 3.5 (0.4-2.0)
[2019-05-11 02:24] VITALS: BP 159/74; PULSE 106
--- NOTE | 2019-05-11 09:50 | XRAY ---
Indication: Generalized weakness. Comparison: December 07, 2018. Portable chest demonstrates developing borderline cardiomegaly, central vascular prominence, and mild interstitial edema concerning for early/mild cardiac decompensation. Superimposed pneumonia not completely excluded. Stable left lung calcified granuloma and left base fibrosis/scarring.
[2019-05-11] MEDS ORDERED: Lasix 40 MG/4 ML IV SCH (10:00)
== END 2019-05-11 01:55 | disposition short-term general hospital (02) ==
LOC: ED 20:42
DX: I21.4 Non-ST elevation (NSTEMI) myocardial infarction (principal); E87.6 Hypokalemia; E83.42 Hypomagnesemia; R03.0 Elevated blood-pressure reading, without diagnosis of hypertension; N39.0 Urinary tract infection, site not specified; E11.65 Type 2 diabetes mellitus with hyperglycemia
CPT/HCPCS: 36000; 36415; 51702; 71045; 80053; 81001; 82150; 82805; 83605; 83690; 83735; 83880; 84484; 85025; 85610; 85730; 87040; 87077; 87086; 87186; 87631; 93005; 93041; 94760; 96360; 96365; 96368; 96372; 96374; 96375; 96376; 99285; 99291; J0696; J1650; J1940; J2060; J3475; A9270-GY

== ENCOUNTER 2019-06-03 10:40 | Inpatient (IN) | payer MEDICARE ==
--- NOTE | 2019-06-03 10:49 | ERPHSYRPT ---
- History of Present Illness Time Seen by Provider: 06/03/19 10:49 Historian: patient, family Exam Limitations: no limitations Physician History: 88 y/o white female presents with generalized cp anteriorly and bilat. described as nonradiating pressure. pt recently dx with an acute mi. was evaluated by stock drier tender. pts daughter states stock drier tender told no surgical ( including stents) not possible in this pt. pt states she does not have any pain now. Timing/Duration: today Activities at Onset: none Quality: pressure Location: other (bilat ant chest) Chest Pain Radiation: no radiation Severity of Pain-Max: mild Severity of Pain-Current: none Modifying Factors: Improves With: nothing Associated Symptoms: denies symptoms Prior Chest Pain/Cardiac Workup: cardiac cath, recently seen/treated Nitro Today/Relief: no nitro taken today Aspirin Treatment Today: 81 mg x 1, provided at home Allergies/Adverse Reactions: promethazine HCl [From Phenergan] Adverse Reaction (Mild, Verified 06/03/19 10: 53) hallucinating Home Medications: Aspirin EC 325 mg [Ecotrin 325 MG] 81 mg PO DAILY 11/11/11 [History] Gabapentin 300 mg [Neurontin 300 mg] 400 mg PO TID 11/11/11 [History] Meclizine HCl 25 mg [Antivert 25 mg] 25 mg PO BID 12/07/18 [History] Atorvastatin Calcium [Lipitor] 10 mg DAILY 06/03/19 [History] Carvedilol 3.125 mg [Coreg 3.125 MG] 1 tab DAILY 06/03/19 [History] Clopidogrel Bisulfate [Clopidogrel] 75 mg DAILY 06/03/19 [History] Furosemide 40 mg DAILY 06/03/19 [History] Potassium Chloride 10 Meq Tab* [Klor Con 10 MEQ] 40 meq UD 06/03/19 [History] Hx Tetanus, Diphtheria Vaccination/Date Given: No Hx Influenza Vaccination/Date Given: Yes Hx Pneumococcal Vaccination/Date Given: No - Review of Systems Constitutional: No Symptoms Eyes: No Symptoms Ears, Nose, & Throat: No Symptoms Respiratory: No Symptoms Cardiac: No Symptoms Abdominal/Gastrointestinal: No Symptoms Genitourinary Symptoms: No Symptoms Musculoskeletal: No Symptoms Skin: No Symptoms Neurological: No Symptoms Psychological: No Symptoms Endocrine: No Symptoms Hematologic/Lymphatic: No Symptoms Immunological/Allergic: No Symptoms All Other Systems: Reviewed and Negative - Past Medical History Pertinent Past Medical History: Yes Neurological History: Dementia ENT History: Cataracts Cardiac History: No Pertinent History Respiratory History: No Pertinent History Endocrine Medical History: Diabetes Type II Musculoskeletal History: No Pertinent History, Osteoporosis GI Medical History: No Pertinent History History: No Pertinent History Psycho-Social History: Depression Female Reproductive Disorders: No Pertinent History - Past Surgical History Past Surgical History: Yes Neuro Surgical History: No Pertinent History Cardiac: No Pertinent History Respiratory: No Pertinent History Gastrointestinal: Appendectomy, Cholecystectomy Musculoskeletal: No Pertinent History Female Surgical History: Hysterectomy - Social History Smoking Status: Never smoker Exposure to second hand smoke: No Drug Use: none Patient Lives Alone: Yes - Nursing Vital Signs Nursing Vital Signs: Initial Vital Signs Temperature 99.6 F 06/03/19 10:44 Pulse Rate 80 06/03/19 10:44 Respiratory Rate 16 06/03/19 10:44 Blood Pressure 163/87 06/03/19 10:44 O2 Sat by Pulse Oximetry 94 L 06/03/19 10:44 Pain Scale Pain Intensity 0 - Physical Exam General Appearance: no apparent distress, alert, anxiety Eye Exam: PERRL/EOMI, eyes nml inspection Ears, Nose, Throat Exam: normal ENT inspection, moist mucous membranes Neck Exam: normal inspection, non-tender, supple, full range of motion Respiratory Exam: normal breath sounds, lungs clear, airway intact, No chest tenderness, No respiratory distress Cardiovascular Exam: regular rate/rhythm, normal heart sounds, normal peripheral pulses Gastrointestinal/Abdomen Exam: soft, normal bowel sounds, No tenderness Pelvic Exam: not done Rectal Exam: not done Back Exam: normal inspection, normal range of motion, No CVA tenderness, No vertebral tenderness Extremity Exam: normal inspection, normal range of motion, pelvis stable Neurologic Exam: alert, oriented x 3, cooperative, health benefits specialist II-XII nml as tested Skin Exam: normal color, warm, dry Lymphatic Exam: No adenopathy SpO2 Interpretation: normal O2 Delivery: Room Air - Course Nursing assessment & vital signs reviewed: Yes EKG Interpreted by Me: RATE (83), Sinus Rhythm, NORMAL AXIS, 1st degree AV Block , Other (known recent ant m. comparison ekg 05/10/19) Ordered Tests: Active Orders 24 hr Category Date Time Status EKG-ER Only STAT Care 06/03/19 11:03 Active Grier [Catheter-[place] Grier] STAT Care 06/03/19 12:11 Active IV Insertion STAT Care 06/03/19 11:03 Active Pulse Oximetry (ED) STAT Care 06/03/19 11:03 Active CHEST 1 VIEW (PORTABLE) Stat Exams 06/03/19 11:20 Completed CHEST WITH CONTRAST [CT] Stat Exams 06/03/19 13:32 Completed ABG [ARTERIAL BLOOD GASES] Stat Lab 06/03/19 12:11 Completed CBC W DIFF Stat Lab 06/03/19 11:16 Completed CMP Stat Lab 06/03/19 11:16 Completed D-DIMER QUANTITATIVE Stat Lab 06/03/19 12:27 Completed Lactic Acid Stat Lab 06/03/19 12:15 Completed Lactic Acid Stat Lab 06/03/19 14:31 Ordered NT PRO BNP Stat Lab 06/03/19 11:16 Completed PROTIME WITH INR Stat Lab 06/03/19 11:16 Completed TROPONIN Q3H Lab 06/03/19 11:16 Completed TROPONIN Q3H Lab 06/03/19 14:15 Ordered TROPONIN Q3H Lab 06/03/19 17:15 Ordered TROPONIN Q3H Lab 06/03/19 20:15 Ordered TROPONIN Q3H Lab 06/03/19 23:15 Ordered Transfer Order Routine Transfer 06/03/19 Ordered Medication Summary Discontinued Medications Generic Name Dose Route Start Last Admin Trade Name Freq PRN Reason Stop Dose Admin Aspirin 243 mg 06/03/19 11:03 06/03/19 11:17 Baby Aspirin 81 Mg Chew PO 06/03/19 11:04 243 mg STAT ONE Administration Aspirin Confirm 06/03/19 11:15 Baby Aspirin 81 Mg Chew Administered 06/03/19 11:16 Dose 243 mg .ROUTE .STK-MED ONE Furosemide 40 mg 06/03/19 12:13 06/03/19 12:17 Lasix 40 Mg/4 Ml IV 06/03/19 12:14 40 mg STAT ONE Administration Furosemide Confirm 06/03/19 12:15 Lasix 40 Mg/4 Ml Administered 06/03/19 12:16 Dose 40 mg .ROUTE .STK-MED ONE Gabapentin 300 mg 06/03/19 14:25 06/03/19 14:31 Neurontin 300 Mg PO 06/03/19 14:26 300 mg STAT ONE Administration Insulin Human Regular 10 unit 06/03/19 12:13 06/03/19 12:23 Novolin R IV 06/03/19 12:14 10 unit STAT ONE Administration Insulin Human Regular Confirm 06/03/19 12:15 Novolin R Administered 06/03/19 12:16 Dose 10 unit .ROUTE .STK-MED ONE Lorazepam 0.5 mg 06/03/19 11:51 06/03/19 11:56 Ativan 2 Mg/1 Ml Vial IV 06/03/19 11:52 0.5 mg STAT ONE Administration Lorazepam Confirm 06/03/19 11:53 Ativan 2 Mg/1 Ml Vial Administered 06/03/19 11:54 Dose 2 mg .ROUTE .STK-MED ONE Lab/Rad Data: Laboratory Result Diagrams 06/03/19 11:16 06/03/19 12:11 Laboratory Results 06/03/19 06/03/19 06/03/19 Range/Units 12:27 12:15 12:11 WBC (4.0-10.5) K/mm3 RBC (4.1-5.4) M/mm3 Hgb (12.0-16.0) gm/dl Hct (35-47) % MCV (78-100) fl MCH (26-32) pg MCHC (32-36) g/dl RDW (11.5-14.0) % Plt Count (150-450) K/mm3 MPV (7.5-11.0) fl Gran % (36.0-66.0) % Eos # (Auto) (0-0.5) Absolute Lymphs (auto) (1.0-4.6) Absolute Monos (auto) (0.0-1.3) Lymphocytes % (24.0-44.0) % Monocytes % (0.0-12.0) % Eosinophils % (0.00-5.0) % Basophils % (0.0-0.4) % Absolute Granulocytes (1.4-6.9) Basophils # (0-0.4) PT (9.95-12.35) SECONDS INR (0.8-3.0) D-Dimer 1577 H* (215-500) ng/mL Puncture Site lr pCO2 57 H (35-45) mmHg pO2 43 L* (75-100) mmHg Base Excess -4.5 L (-2.0-2.0) O2 Saturation 71 L (94-100) g/dF ABG pH 7.23 L* (7.35-7.45) ABG HCO3 23.9 (22-28) ABG O2 Sat (Measured) 69 L (95-100) % Ar Test yES A-a Gradient 142 a/A Ratio 0.23 Hemoglobin 10.6 Carboxyhemoglobin 1.4 (0.0-6.9) % THgb Methemoglobin 0.4 L (1.4-1.5) % POC O2 Flow Rate 36 % Sodium (137-145) mmol/L Potassium 4.1 (3.5-5.1) mmol/L Chloride (98-107) mmol/L Carbon Dioxide 25 (22-30) mmol/L Anion Gap (5-15) MEQ/L BUN (7-17) mg/dL Creatinine (0.52-1.04) mg/dL Estimated GFR ML/MIN Glucose (74-106) mg/dL Lactic Acid 5.6 H (0.4-2.0) Calcium (8.4-10.2) mg/dL Total Bilirubin (0.2-1.3) mg/dL AST (14-36) U/L ALT (0-35) U/L Alkaline Phosphatase (38-126) U/L Troponin I (0.000-0.034) ng/mL NT-Pro-B Natriuret Pep (0-1800) pg/mL Serum Total Protein (6.3-8.2) g/dL Albumin (3.5-5.0) g/dL 06/03/19 06/03/19 06/03/19 Range/Units 11:16 11:16 11:16 WBC (4.0-10.5) K/mm3 RBC (4.1-5.4) M/mm3 Hgb (12.0-16.0) gm/dl Hct (35-47) % MCV (78-100) fl MCH (26-32) pg MCHC (32-36) g/dl RDW (11.5-14.0) % Plt Count (150-450) K/mm3 MPV (7.5-11.0) fl Gran % (36.0-66.0) % Eos # (Auto) (0-0.5) Absolute Lymphs (auto) (1.0-4.6) Absolute Monos (auto) (0.0-1.3) Lymphocytes % (24.0-44.0) % Monocytes % (0.0-12.0) % Eosinophils % (0.00-5.0) % Basophils % (0.0-0.4) % Absolute Granulocytes (1.4-6.9) Basophils # (0-0.4) PT 12.4 H (9.95-12.35) SECONDS INR 1.10 (0.8-3.0) D-Dimer (215-500) ng/mL Puncture Site pCO2 (35-45) mmHg pO2 (75-100) mmHg Base Excess (-2.0-2.0) O2 Saturation (94-100) g/dF ABG pH (7.35-7.45) ABG HCO3 (22-28) ABG O2 Sat (Measured) (95-100) % Ar Test A-a Gradient a/A Ratio Hemoglobin Carboxyhemoglobin (0.0-6.9) % THgb Methemoglobin (1.4-1.5) % POC O2 Flow Rate % Sodium 138 (137-145) mmol/L Potassium 4.0 (3.5-5.1) mmol/L Chloride 98 (98-107) mmol/L Carbon Dioxide 30 (22-30) mmol/L Anion Gap 14.1 (5-15) MEQ/L BUN 17 (7-17) mg/dL Creatinine 0.58 (0.52-1.04) mg/dL Estimated GFR > 60.0 ML/MIN Glucose 425 H (74-106) mg/dL Lactic Acid (0.4-2.0) Calcium 9.3 (8.4-10.2) mg/dL Total Bilirubin 0.50 (0.2-1.3) mg/dL AST 40 H (14-36) U/L ALT 16 (0-35) U/L Alkaline Phosphatase 90 (38-126) U/L Troponin I 0.026 (0.000-0.034) ng/mL NT-Pro-B Natriuret Pep 28780 H (0-1800) pg/mL Serum Total Protein 7.3 (6.3-8.2) g/dL Albumin 3.8 (3.5-5.0) g/dL 06/03/19 Range/Units 11:16 WBC 8.8 (4.0-10.5) K/mm3 RBC 3.41 L (4.1-5.4) M/mm3 Hgb 9.6 L (12.0-16.0) gm/dl Hct 30.3 L (35-47) % MCV 88.9 (78-100) fl MCH 28.2 (26-32) pg MCHC 31.7 L (32-36) g/dl RDW 14.3 H (11.5-14.0) % Plt Count 273 (150-450) K/mm3 MPV 11.0 (7.5-11.0) fl Gran % 60.2 (36.0-66.0) % Eos # (Auto) 0.57 H (0-0.5) Absolute Lymphs (auto) 2.04 (1.0-4.6) Absolute Monos (auto) 0.85 (0.0-1.3) Lymphocytes % 23.3 L (24.0-44.0) % Monocytes % 9.7 (0.0-12.0) % Eosinophils % 6.5 H (0.00-5.0) % Basophils % 0.3 (0.0-0.4) % Absolute Granulocytes 5.27 (1.4-6.9) Basophils # 0.03 (0-0.4) PT (9.95-12.35) SECONDS INR (0.8-3.0) D-Dimer (215-500) ng/mL Puncture Site pCO2 (35-45) mmHg pO2 (75-100) mmHg Base Excess (-2.0-2.0) O2 Saturation (94-100) g/dF ABG pH (7.35-7.45) ABG HCO3 (22-28) ABG O2 Sat (Measured) (95-100) % Ar Test A-a Gradient a/A Ratio Hemoglobin Carboxyhemoglobin (0.0-6.9) % THgb Methemoglobin (1.4-1.5) % POC O2 Flow Rate % Sodium (137-145) mmol/L Potassium (3.5-5.1) mmol/L Chloride (98-107) mmol/L Carbon Dioxide (22-30) mmol/L Anion Gap (5-15) MEQ/L BUN (7-17) mg/dL Creatinine (0.52-1.04) mg/dL Estimated GFR ML/MIN Glucose (74-106) mg/dL Lactic Acid (0.4-2.0) Calcium (8.4-10.2) mg/dL Total Bilirubin (0.2-1.3) mg/dL AST (14-36) U/L ALT (0-35) U/L Alkaline Phosphatase (38-126) U/L Troponin I (0.000-0.034) ng/mL NT-Pro-B Natriuret Pep (0-1800) pg/mL Serum Total Protein (6.3-8.2) g/dL Albumin (3.5-5.0) g/dL - Progress Progress: re-examined, unchanged Air Movement: fair Progress Note: 06/03/19 12:34 pt suddenly became anxious, sob with a drop in her oxygenation. we called RT, increased oxygen, obtained abg, d dimer, gave lasix and placed grier cath. pt is a DNR. pt was told dr. ohara(stock drier tender) has nothing to offer her. her cardiac vessels are nearly completely or completely blocked. 06/03/19 14:[address] hui. will check a ddimer. if elevated will cta chest. ok to admit. pt is dnr. 06/03/19 14:39 cta-no pulm emboli. cardiac decompensation with pleural effusion Antibiotics given: No Discussed with .: Josee Counseled pt/family regarding: lab results, diagnosis, rad results - Departure Departure Disposition: In-patient Admission Clinical Impression: CHF (congestive heart failure), Anemia, Elevated d-dimer, Coronary artery disease, Hyperglycemia, Pleural effusion Condition: Fair Critical Care Time: Yes Referrals: PETRA HUI MD [Primary Care Provider] - Instructions: Heart Failure
[2019-06-03] MEDS ORDERED: BABY ASPIRIN 81 MG CHEW PO ONE (11:03)
[2019-06-03] MEDS ORDERED: BABY ASPIRIN 81 MG CHEW ONE (11:15)
[2019-06-03 11:23] LABS: Absolute Neutrophil Ct (ANC) 5.27 (1.4-6.9); BASOPHIL % 0.3 % (0.0-0.4); Basophil (Absolute #) 0.03 (0-0.4); Eosinophil % 6.5 % (0.00-5.0); Eosinophil (Absolute #) 0.57 (0-0.5); Hematocrit 30.3 % (35-47); Hemoglobin 9.6 gm/dl (12.0-16.0); Lymphocyte (Absolute #) 2.04 (1.0-4.6); Lymphocytes % 23.3 % (24.0-44.0); Mean Cell Volume 88.9 fl (78-100); Mean Corpuscular Hemoglobin 28.2 pg (26-32); Mean Corpuscular Hgb Concent. 31.7 g/dl (32-36); Monocyte (Absolute #) 0.85 (0.0-1.3); Monocytes % 9.7 % (0.0-12.0); Neutrophil % 60.2 % (36.0-66.0); Platelet Count 273 K/mm3 (150-450); Red Blood Count 3.41 M/mm3 (4.1-5.4); Red Cell Distribution Width 14.3 % (11.5-14.0); White Blood Count 8.8 K/mm3 (4.0-10.5)
[2019-06-03 11:25] LABS: INR 1.1 (0.8-3.0); PROTIME 12.4 SECONDS (9.95-12.35)
--- NOTE | 2019-06-03 11:32 | XRAY ---
Indication: Chest pain/pressure. Comparison: May 11, 2019. Portable chest demonstrates stable left upper lobe calcified granuloma and left base fibrosis/scarring. No focal infiltrate, consolidation, or large effusion. Heart remains borderline enlarged. Stable right hemidiaphragm elevation. Bony thorax intact again with mild osteopenia and degenerative changes. Impression: Nonacute chest with chronic features.
[2019-06-03 11:39] LABS: ALBUMIN 3.8 g/dL (3.5-5.0); ALKALINE PHOSPHATASE 90 U/L (38-126); ANION GAP 14.1 MEQ/L (5-15); BLOOD UREA NITROGEN 17 mg/dL (7-17); CHLORIDE 98 mmol/L (98-107); Calcium 9.3 mg/dL (8.4-10.2); Carbon Dioxide 30 mmol/L (22-30); Creatinine 1 0.58 mg/dL (0.52-1.04); Glucose 425 mg/dL (74-106); NT PRO BNP 15200 pg/mL (0-1800); SGOT/AST 40 U/L (14-36); SGPT/ALT 16 U/L (0-35); SODIUM 138 mmol/L (137-145); Total Protein 7.3 g/dL (6.3-8.2)
[2019-06-03] MEDS ORDERED: Ativan 2 MG/1 ML VIAL IV ONE (11:51)
[2019-06-03] MEDS ORDERED: Ativan 2 MG/1 ML VIAL ONE (11:53)
[2019-06-03] MEDS ORDERED: Lasix 40 MG/4 ML IV ONE (12:13)
[2019-06-03] MEDS ORDERED: NovoLIN R IV ONE (12:13)
[2019-06-03] MEDS ORDERED: NovoLIN R ONE (12:15)
[2019-06-03] MEDS ORDERED: Lasix 40 MG/4 ML ONE (12:15)
[2019-06-03 12:31] LABS: Lactic Acid 5.6 (0.4-2.0)
[2019-06-03 12:32] LABS: ARTERIAL BLD GAS O2 SATURATION 69 % (95-100); ARTERIAL BLOOD GAS BASE EXCESS -4.5 (-2.0-2.0); ARTERIAL BLOOD GAS PCO2 57 mmHg (35-45); ARTERIAL BLOOD GAS PO2 43 mmHg (75-100); ARTERIAL BLOOD GAS pH 7.23 (7.35-7.45); CARBON DIOXIDE 25 mEq/L (23-27); HCO3- 23.9 (22-28)
[2019-06-03 12:33] LABS: A-aADO2 142; ABG HEMOGLOBIN 10.6; ABG POTASSIUM 4.1 (3.5-5.1); ABG SITE lr; ARTERIAL BLOOD GAS FIO2 36 %; CARBOXYHEMOGLOBIN 1.4 % THgb (0.0-6.9); HGB O2 SAT 71 g/dF (94-100); Methhemoglobin 0.4 % (1.4-1.5); paO2 pAO1 0.23
[2019-06-03] MEDS ORDERED: NEURONTIN 300 MG PO ONE (14:25)
--- NOTE | 2019-06-03 14:37 | XRAY ---
Indication: Chest pain and short breath. Elevated d-dimer. Multiple contiguous axial images obtained through the chest using 80 cc Isovue 370 contrast and PE protocol. Comparison: None There is satisfactory opacification of the pulmonary arteries. However diffuse respiration artifact limits evaluation of the lobar and segmental branches. No central pulmonary embolus. Heart is enlarged. Aorta is minimally arteriosclerotic without aneurysm/dissection. Small AP window and left perihilar calcified nodes. No pathologic mediastinal/hilar lymphadenopathy. Lungs demonstrates small nonspecific bilateral effusions and mild bibasilar compressive atelectasis. Right lower lobe subsegmental atelectasis/scarring and small left upper lobe calcified granuloma. Bony thorax demonstrates mild osteopenia, mild degenerative changes throughout the spine, and remote T5 superior endplate fracture with less than 25% height loss. Limited upper abdomen demonstrates fatty liver. Impression: 1. Pulmonary embolus evaluation limited due to diffuse respiration artifact. No central pulmonary embolus. 2. Cardiomegaly with small bilateral effusions. Rule out cardiac decompensation. 3. Incidental fatty liver and evidence for old granulomatous disease.
[2019-06-03] MEDS ORDERED: TYLENOL 325 MG PO PRN (15:35)
[2019-06-03] MEDS ORDERED: Zofran 4 MG/2 ML VIAL IV PRN (15:35)
[2019-06-03] MEDS: Sodium Chloride 0.9% 1000 ML 1,000 ML IV SCH (17:57)
[2019-06-03] MEDS: Lasix 40 MG/4 ML IV SCH (18:00)
[2019-06-03] MEDS: NovoLIN R SQ PRN ×2 (18:03→21:53)
[2019-06-03] MEDS: Ativan 2 MG/1 ML VIAL IV PRN ×2 (18:52→23:30)
[2019-06-03] MEDS ORDERED: Ativan 0.5 MG PO PRN (19:36)
[2019-06-03] MEDS: ANTIVERT 25 MG PO SCH (20:33)
[2019-06-03] MEDS: Neurontin 400 MG PO SCH (20:33)
[2019-06-04] MEDS: Lasix 40 MG/4 ML IV SCH ×2 (04:24→14:49)
[2019-06-04 05:18] LABS: Absolute Neutrophil Ct (ANC) 4.34 (1.4-6.9); BASOPHIL % 0.3 % (0.0-0.4); Basophil (Absolute #) 0.03 (0-0.4); Eosinophil (Absolute #) 0.71 (0-0.5); Hematocrit 29.1 % (35-47); Lymphocyte (Absolute #) 2.78 (1.0-4.6); Lymphocytes % 31.5 % (24.0-44.0); Mean Cell Volume 88.7 fl (78-100); Mean Corpuscular Hemoglobin 27.4 pg (26-32); Mean Corpuscular Hgb Concent. 30.9 g/dl (32-36); Mean Platelet Volume 11.6 fl (7.5-11.0); Monocyte (Absolute #) 0.96 (0.0-1.3); Monocytes % 10.9 % (0.0-12.0); Neutrophil % 49.3 % (36.0-66.0); Platelet Count 227 K/mm3 (150-450); Red Blood Count 3.28 M/mm3 (4.1-5.4); Red Cell Distribution Width 14.3 % (11.5-14.0); White Blood Count 8.8 K/mm3 (4.0-10.5)
[2019-06-04 05:41] LABS: ALBUMIN 3.1 g/dL (3.5-5.0); ALKALINE PHOSPHATASE 67 U/L (38-126); ANION GAP 12.4 MEQ/L (5-15); BLOOD UREA NITROGEN 17 mg/dL (7-17); CHLORIDE 100 mmol/L (98-107); Calcium 8.6 mg/dL (8.4-10.2); Carbon Dioxide 30 mmol/L (22-30); Glucose 102 mg/dL (74-106); Potassium 3.1 mmol/L (3.5-5.1); SGOT/AST 38 U/L (14-36); SGPT/ALT 15 U/L (0-35); SODIUM 139 mmol/L (137-145); Total Protein 6.3 g/dL (6.3-8.2)
[2019-06-04 06:09] LABS: Slide Review 1 YES
[2019-06-04] MEDS ORDERED: MEDICATION INTERVENTION MC SCH ×2 (07:15)
[2019-06-04] MEDS ORDERED: POTASSIUM GLUCONATE 99 MG PO SCH (07:15)
[2019-06-04] MEDS ORDERED: INSULIN GLARGINE HUM REC ANLOG 15 UNIT SQ SCH (07:30)
[2019-06-04] MEDS: Glucophage XR 500 MG PO SCH (09:22)
[2019-06-04] MEDS: Neurontin 400 MG PO SCH ×3 (09:25→21:39)
[2019-06-04] MEDS: ECOTRIN 81 MG PO SCH (09:26)
[2019-06-04] MEDS: ANTIVERT 25 MG PO SCH ×2 (09:26→21:39)
[2019-06-04] MEDS: Zocor 10MG PO SCH (09:26)
[2019-06-04] MEDS: Coreg 3.125 MG PO SCH (09:26)
[2019-06-04] MEDS: PLAVIX 75 MG Tablet PO SCH (09:26)
[2019-06-04] MEDS: NovoLIN R SQ PRN ×3 (09:29→17:11)
--- NOTE | 2019-06-04 09:33 | PCM.HP ---
History of Present Illness - Chief Complaint Chief Complaint: weakness, shortness of breath for 2-3 dys History of Present Illness: is a 88 year old female presents with generalized cp anteriorly and bilat. described as nonradiating pressure. pt recently dx with an acute mi. was evaluated by checkering machine adjuster. pts daughter states checkering machine adjuster told no surgical ( including stents) not possible in this pt. pt states she does not have any pain now. Timing/Duration: today Activities at Onset: none Quality: pressure Location: other (bilat ant chest) Chest Pain Radiation: no radiation Severity of Pain-Max: mild Severity of Pain-Current: none Modifying Factors: Improves With: nothing Associated Symptoms: denies symptoms Prior Chest Pain/Cardiac Workup: cardiac cath, recently seen/treated - Review of Systems Constitutional: No Fever, No Chills Eyes: No Symptoms Ears, Nose, & Throat: No Symptoms Respiratory: No Cough, No Short Of Breath Cardiac: Chest Pain, Edema, Palpitations, No Syncope Abdominal/Gastrointestinal: No Abdominal Pain, No Nausea, No Vomiting, No Diarrhea Genitourinary Symptoms: No Dysuria Musculoskeletal: No Back Pain, No Neck Pain Skin: No Rash Neurological: No Dizziness, No Focal Weakness, No Sensory Changes Psychological: No Symptoms Endocrine: No Symptoms Hematologic/Lymphatic: No Symptoms Immunological/Allergic: No Symptoms Medications & Allergies Home Medications: Home Medication List Aspirin EC 325 mg [Ecotrin 325 MG] 81 mg PO DAILY 11/11/11 [History Confirmed 06/03/19] Gabapentin 300 mg [Neurontin 300 mg] 400 mg PO TID 11/11/11 [History Confirmed 06/03/19] Lorazepam 0.5 mg [Ativan 0.5 MG] 0.5 mg PO QHS PRN #10 tablet 07/17/14 [ Rx Confirmed 06/03/19] Meclizine HCl 25 mg [Antivert 25 mg] 25 mg PO BID 12/07/18 [History Confirmed 06/03/19] Insulin Glargine,Hum.rec.anlog [Lantus Solostar] 15 unit SQ AC 30 Days #5 ml [Rx Confirmed 06/03/19] Metformin HCl Xr 500 mg [Glucophage XR 500 MG] 500 mg PO DAILY 30 Days # 30 tab 12/08/18 [Rx Confirmed 06/03/19] Atorvastatin Calcium [Lipitor] 10 mg DAILY 06/03/19 [History Confirmed 06/03/19] Carvedilol 3.125 mg [Coreg 3.125 MG] 1 tab DAILY 06/03/19 [History Confirmed 06/03/19] Clopidogrel Bisulfate [Clopidogrel] 75 mg DAILY 06/03/19 [History Confirmed ] Furosemide 40 mg DAILY 06/03/19 [History Confirmed 06/03/19] Potassium Gluconate 99 mg PO UD 06/03/19 [History Confirmed 06/03/19] Allergies/Adverse Reactions: Allergies Allergy/AdvReac Type Severity Reaction Status Date / Time promethazine HCl AdvReac Mild Verified 06/03/19 10:53 [From Phenergan] - Past Medical History Past Medical History: Yes Neurological History: Dementia ENT History: Cataracts Cardiac History: No Pertinent History Respiratory History: No Pertinent History Endocrine Medical History: Diabetes Type II Musculoskelatal History: No Pertinent History, Osteoporosis GI Medical History: No Pertinent History History: No Pertinent History Pyscho-Social History: Depression Reproductive Disorders: No Pertinent History - Female History Hx Last Menstrual Period: post Are you now?: No - Past Surgical History Past Surgical History: Yes Neuro Surgical History: No Pertinent History Cardiac History: No Pertinent History Respiratory Surgery: No Pertinent History GI Surgical History: Appendectomy, Cholecystectomy Musculskeletal Surgical Hx: No Pertinent History Female Surgical History: Hysterectomy - Social History Smoking Status: Never smoker Exposure to second hand smoke: No Alcohol: None Drug Use: none - Physical Exam Vital Signs: Vital Signs - 24 hr Temp Pulse Pulse Resp BP Pulse Ox 06/04/19 08:00 97.6 F 79 18 111/55 100 06/04/19 04:00 73 20 116/57 98 06/04/19 00:00 98.7 F 80 18 161/72 100 06/03/19 21:42 99 06/03/19 20:00 98.6 F 82 20 129/60 100 06/03/19 16:55 97.7 F 78 20 143/63 99 06/03/19 15:35 88 20 98 06/03/19 14:21 86 22 140/83 99 06/03/19 12:36 104 H 36 H 111/58 85 L 06/03/19 12:23 99.1 F 108 H 176/90 75 L 06/03/19 12:11 70 L 06/03/19 11:00 84 16 163/87 94 L 06/03/19 10:44 99.6 F 84 80 16 163/87 94 L Oxygen-Last 24 hours O2 Percentage 80% O2 Percentage 50% O2 Percentage 50% O2 Percentage 6 Liters = 44% O2 Percentage 3 Liters = 32% Oxygen Flowrate (L/min)-RT 10 Oxygen Flowrate (L/min)-RT 10 Oxygen Flowrate (L/min)-RT 10 General Appearance: no apparent distress, alert Neurologic Exam: alert, oriented x 3, cooperative, normal mood/affect, nml cerebellar function, nml station & gait, sensation nml, No motor deficits Eye Exam: PERRL/EOMI, eyes nml inspection Ears, Nose, Throat Exam: normal ENT inspection, TMs normal, pharynx normal, moist mucous membranes Neck Exam: normal inspection, non-tender, supple, full range of motion Respiratory Exam: normal breath sounds, lungs clear, No respiratory distress Cardiovascular Exam: tachycardia, irregular, capillary refill >3 sec Gastrointestinal/Abdomen Exam: soft, normal bowel sounds, No tenderness, No mass Back Exam: normal inspection, normal range of motion, No CVA tenderness, No vertebral tenderness Extremity Exam: normal inspection, normal range of motion, pelvis stable Skin Exam: normal color, warm, dry, No rash Lymphatic Exam: No adenopathy Results - Labs Lab/Micro Results: Accuchecks Date 06/04/19 Time 22:00 Accucheck Value: 301 Accucheck Value: 281 Lab Results-Last 24 Hours 06/03/19 06/03/19 06/03/19 Range/Units 11:16 11:16 11:16 WBC 8.8 (4.0-10.5) K/mm3 RBC 3.41 L (4.1-5.4) M/mm3 Hgb 9.6 L (12.0-16.0) gm/dl Hct 30.3 L (35-47) % MCV 88.9 (78-100) fl MCH 28.2 (26-32) pg MCHC 31.7 L (32-36) g/dl RDW 14.3 H (11.5-14.0) % Plt Count 273 (150-450) K/mm3 MPV 11.0 (7.5-11.0) fl Gran % 60.2 (36.0-66.0) % Eos # (Auto) 0.57 H (0-0.5) Absolute Lymphs (auto) 2.04 (1.0-4.6) Absolute Monos (auto) 0.85 (0.0-1.3) Lymphocytes % 23.3 L (24.0-44.0) % Monocytes % 9.7 (0.0-12.0) % Eosinophils % 6.5 H (0.00-5.0) % Basophils % 0.3 (0.0-0.4) % Absolute Granulocytes 5.27 (1.4-6.9) Basophils # 0.03 (0-0.4) PT 12.4 H (9.95-12.35) SECONDS INR 1.10 (0.8-3.0) D-Dimer (215-500) ng/mL Puncture Site pCO2 (35-45) mmHg pO2 (75-100) mmHg Base Excess (-2.0-2.0) O2 Saturation (94-100) g/dF ABG pH (7.35-7.45) ABG HCO3 (22-28) ABG O2 Sat (Measured) (95-100) % Ar Test A-a Gradient a/A Ratio Hemoglobin Carboxyhemoglobin (0.0-6.9) % THgb Methemoglobin (1.4-1.5) % POC O2 Flow Rate % Sodium 138 (137-145) mmol/L Potassium 4.0 (3.5-5.1) mmol/L Chloride 98 (98-107) mmol/L Carbon Dioxide 30 (22-30) mmol/L Anion Gap 14.1 (5-15) MEQ/L BUN 17 (7-17) mg/dL Creatinine 0.58 (0.52-1.04) mg/dL Estimated GFR > 60.0 ML/MIN Glucose 425 H (74-106) mg/dL Lactic Acid (0.4-2.0) Calcium 9.3 (8.4-10.2) mg/dL Total Bilirubin 0.50 (0.2-1.3) mg/dL AST 40 H (14-36) U/L ALT 16 (0-35) U/L Alkaline Phosphatase 90 (38-126) U/L Troponin I (0.000-0.034) ng/mL NT-Pro-B Natriuret Pep 75408 H (0-1800) pg/mL Serum Total Protein 7.3 (6.3-8.2) g/dL Albumin 3.8 (3.5-5.0) g/dL Slides for Path Review 06/03/19 06/03/19 06/03/19 Range/Units 11:16 12:11 12:15 WBC (4.0-10.5) K/mm3 RBC (4.1-5.4) M/mm3 Hgb (12.0-16.0) gm/dl Hct (35-47) % MCV (78-100) fl MCH (26-32) pg MCHC (32-36) g/dl RDW (11.5-14.0) % Plt Count (150-450) K/mm3 MPV (7.5-11.0) fl Gran % (36.0-66.0) % Eos # (Auto) (0-0.5) Absolute Lymphs (auto) (1.0-4.6) Absolute Monos (auto) (0.0-1.3) Lymphocytes % (24.0-44.0) % Monocytes % (0.0-12.0) % Eosinophils % (0.00-5.0) % Basophils % (0.0-0.4) % Absolute Granulocytes (1.4-6.9) Basophils # (0-0.4) PT (9.95-12.35) SECONDS INR (0.8-3.0) D-Dimer (215-500) ng/mL Puncture Site lr pCO2 57 H (35-45) mmHg pO2 43 L* (75-100) mmHg Base Excess -4.5 L (-2.0-2.0) O2 Saturation 71 L (94-100) g/dF ABG pH 7.23 L* (7.35-7.45) ABG HCO3 23.9 (22-28) ABG O2 Sat (Measured) 69 L (95-100) % Ar Test yES A-a Gradient 142 a/A Ratio 0.23 Hemoglobin 10.6 Carboxyhemoglobin 1.4 (0.0-6.9) % THgb Methemoglobin 0.4 L (1.4-1.5) % POC O2 Flow Rate 36 % Sodium (137-145) mmol/L Potassium 4.1 (3.5-5.1) mmol/L Chloride (98-107) mmol/L Carbon Dioxide 25 (22-30) mmol/L Anion Gap (5-15) MEQ/L BUN (7-17) mg/dL Creatinine (0.52-1.04) mg/dL Estimated GFR ML/MIN Glucose (74-106) mg/dL Lactic Acid 5.6 H (0.4-2.0) Calcium (8.4-10.2) mg/dL Total Bilirubin (0.2-1.3) mg/dL AST (14-36) U/L ALT (0-35) U/L Alkaline Phosphatase (38-126) U/L Troponin I 0.026 (0.000-0.034) ng/mL NT-Pro-B Natriuret Pep (0-1800) pg/mL Serum Total Protein (6.3-8.2) g/dL Albumin (3.5-5.0) g/dL Slides for Path Review 06/03/19 06/03/19 06/03/19 Range/Units 12:27 15:10 16:03 WBC (4.0-10.5) K/mm3 RBC (4.1-5.4) M/mm3 Hgb (12.0-16.0) gm/dl Hct (35-47) % MCV (78-100) fl MCH (26-32) pg MCHC (32-36) g/dl RDW (11.5-14.0) % Plt Count (150-450) K/mm3 MPV (7.5-11.0) fl Gran % (36.0-66.0) % Eos # (Auto) (0-0.5) Absolute Lymphs (auto) (1.0-4.6) Absolute Monos (auto) (0.0-1.3) Lymphocytes % (24.0-44.0) % Monocytes % (0.0-12.0) % Eosinophils % (0.00-5.0) % Basophils % (0.0-0.4) % Absolute Granulocytes (1.4-6.9) Basophils # (0-0.4) PT (9.95-12.35) SECONDS INR (0.8-3.0) D-Dimer 1577 H* (215-500) ng/mL Puncture Site pCO2 (35-45) mmHg pO2 (75-100) mmHg Base Excess (-2.0-2.0) O2 Saturation (94-100) g/dF ABG pH (7.35-7.45) ABG HCO3 (22-28) ABG O2 Sat (Measured) (95-100) % Ar Test A-a Gradient a/A Ratio Hemoglobin Carboxyhemoglobin (0.0-6.9) % THgb Methemoglobin (1.4-1.5) % POC O2 Flow Rate % Sodium (137-145) mmol/L Potassium (3.5-5.1) mmol/L Chloride (98-107) mmol/L Carbon Dioxide (22-30) mmol/L Anion Gap (5-15) MEQ/L BUN (7-17) mg/dL Creatinine (0.52-1.04) mg/dL Estimated GFR ML/MIN Glucose (74-106) mg/dL Lactic Acid 1.7 (0.4-2.0) Calcium (8.4-10.2) mg/dL Total Bilirubin (0.2-1.3) mg/dL AST (14-36) U/L ALT (0-35) U/L Alkaline Phosphatase (38-126) U/L Troponin I 0.052 H* (0.000-0.034) ng/mL NT-Pro-B Natriuret Pep (0-1800) pg/mL Serum Total Protein (6.3-8.2) g/dL Albumin (3.5-5.0) g/dL Slides for Path Review 06/04/19 06/04/19 Range/Units 05:00 05:00 WBC 8.8 (4.0-10.5) K/mm3 RBC 3.28 L (4.1-5.4) M/mm3 Hgb 9.0 L (12.0-16.0) gm/dl Hct 29.1 L (35-47) % MCV 88.7 (78-100) fl MCH 27.4 (26-32) pg MCHC 30.9 L (32-36) g/dl RDW 14.3 H (11.5-14.0) % Plt Count 227 (150-450) K/mm3 MPV 11.6 H (7.5-11.0) fl Gran % 49.3 (36.0-66.0) % Eos # (Auto) 0.71 H (0-0.5) Absolute Lymphs (auto) 2.78 (1.0-4.6) Absolute Monos (auto) 0.96 (0.0-1.3) Lymphocytes % 31.5 (24.0-44.0) % Monocytes % 10.9 (0.0-12.0) % Eosinophils % 8.0 H (0.00-5.0) % Basophils % 0.3 (0.0-0.4) % Absolute Granulocytes 4.34 (1.4-6.9) Basophils # 0.03 (0-0.4) PT (9.95-12.35) SECONDS INR (0.8-3.0) D-Dimer (215-500) ng/mL Puncture Site pCO2 (35-45) mmHg pO2 (75-100) mmHg Base Excess (-2.0-2.0) O2 Saturation (94-100) g/dF ABG pH (7.35-7.45) ABG HCO3 (22-28) ABG O2 Sat (Measured) (95-100) % Ar Test A-a Gradient a/A Ratio Hemoglobin Carboxyhemoglobin (0.0-6.9) % THgb Methemoglobin (1.4-1.5) % POC O2 Flow Rate % Sodium 139 (137-145) mmol/L Potassium 3.1 L D (3.5-5.1) mmol/L Chloride 100 (98-107) mmol/L Carbon Dioxide 30 (22-30) mmol/L Anion Gap 12.4 (5-15) MEQ/L BUN 17 (7-17) mg/dL Creatinine 0.50 L (0.52-1.04) mg/dL Estimated GFR > 60.0 ML/MIN Glucose 102 (74-106) mg/dL Lactic Acid (0.4-2.0) Calcium 8.6 (8.4-10.2) mg/dL Total Bilirubin 0.40 (0.2-1.3) mg/dL AST 38 H (14-36) U/L ALT 15 (0-35) U/L Alkaline Phosphatase 67 (38-126) U/L Troponin I (0.000-0.034) ng/mL NT-Pro-B Natriuret Pep (0-1800) pg/mL Serum Total Protein 6.3 (6.3-8.2) g/dL Albumin 3.1 L (3.5-5.0) g/dL Slides for Path Review YES Accuchecks Date 06/04/19 Time 22:00 Accucheck Value: 301 Accucheck Value: 281 - Radiology Impressions Radiology Exams & Impressions: Radiology Procedures Category Date Time Status CHEST 1 VIEW (PORTABLE) Stat Exams 06/03/19 11:20 Completed CHEST WITH CONTRAST [CT] Stat Exams 06/03/19 13:32 Completed - Other Procedures and Tests Respiratory Therapy 06/03/19 15:35 EKG REPEAT IN AM 06/03/19 16:32 Oxygen Oxymizer LPM 10% Assessment/Plan (1) Elevated troponin I level Current Visit: Yes Status: Acute Assessment & Plan: Last Vital Signs Temp 97.6 F 06/04/19 08:00 Pulse 79 06/04/19 08:00 Resp 18 06/04/19 08:00 BP 111/55 06/04/19 08:00 Pulse Ox 100 06/04/19 08:00 Allergies promethazine HCl [From Phenergan] Adverse Reaction (Mild, Verified 06/03/19 10: 53) hallucinating Active Medications Acetaminophen (Tylenol 325 Mg) 325 mg PO Q4H PRN PRN PRN Reason: PAIN, FEVER, HEADACHE Stop: 07/03/19 15:34 Last Admin: 06/03/19 23:31 Dose: 325 mg Aspirin (Ecotrin 81 Mg) 81 mg PO DAILY [facility] Stop: 07/04/19 09:59 Last Admin: 06/04/19 09:26 Dose: 81 mg Carvedilol (Coreg 3.125 Mg) 3.125 mg PO DAILY [facility] Stop: 07/04/19 09:59 Last Admin: 06/04/19 09:26 Dose: 3.125 mg Clopidogrel Bisulfate (Plavix 75 Mg Tablet) 75 mg PO DAILY [facility] Stop: 07/04/19 09:59 Last Admin: 06/04/19 09:26 Dose: 75 mg Furosemide (Lasix 40 Mg/4 Ml) 40 mg IV Q12H [facility] Stop: 07/03/19 15:34 Last Admin: 06/04/19 04:24 Dose: 40 mg Gabapentin (Neurontin 400 Mg) 400 mg PO TID [facility]ANDRA Stop: 07/03/19 21:59 Last Admin: 06/04/19 09:25 Dose: 400 mg Sodium Chloride (Sodium Chloride 0.9% 1000 Ml) 1,000 mls @ 50 mls/hr IV .Q20H ALEXANDRA Stop: 07/03/19 15:34 Last Admin: 06/03/19 17:57 Dose: 50 mls/hr Insulin Human Regular (Novolin R) 0 unit SQ UD PRN PRN Reason: ACCUCHEK Stop: 07/03/19 15:34 Last Admin: 06/04/19 09:29 Dose: 5 unit Lorazepam (Ativan 2 Mg/1 Ml Vial) 0.5 mg IV Q4H PRN PRN PRN Reason: ANXIETY Stop: 07/03/19 15:34 Last Admin: 06/03/19 23:30 Dose: 0.5 mg Lorazepam (Ativan 0.5 Mg) 0.5 mg PO HSPRN PRN PRN Reason: ANXIETY Stop: 07/03/19 19:35 Meclizine HCl (Antivert 25 Mg) 25 mg PO BID [facility] Stop: 07/03/19 21:59 Last Admin: 06/04/19 09:26 Dose: 25 mg Metformin HCl (Glucophage Xr 500 Mg) 500 mg PO DAILY@0800 [facility] Stop: 07/04/19 07:59 Last Admin: 06/04/19 09:22 Dose: 500 mg Miscellaneous Information (Medication Intervention) 1 each MC .RN TO CHECK WITH PT [facility] Stop: 07/04/19 07:14 Miscellaneous Information (Medication Intervention) 1 each MC .RN TO CLARIFY [facility] Stop: 07/04/19 07:14 Ondansetron HCl (Zofran 4 Mg/2 Ml Vial) 4 mg IV Q6H PRN PRN PRN Reason: NAUSEA/VOMITING Stop: 07/03/19 15:34 Potassium Chloride (Klor Con 10 Meq) 10 meq PO DAILY [facility] Stop: 07/04/19 09:59 Simvastatin (Zocor 10mg) 10 mg PO DAILY [facility] Stop: 07/04/19 09:59 Last Admin: 06/04/19 09:26 Dose: 10 mg Intake & Output 06/03/19 06/04/19 11:59 11:59 Intake Total 1021 Output Total 1750 Balance -729 Weight 59.874 kg 57.3 kg Orders 06/03/19 16:32 Oxygen Oxymizer LPM 10% 06/03/19 17:39 Infection Control Consult ROUTINE Nutritional Admission Screen once 06/03/19 19:36 Lorazepam 0.5 mg [Ativan 0.5 MG] 0.5 mg PO HSPRN PRN 06/03/19 22:00 Gabapentin 400 mg [Neurontin 400 MG] 400 mg PO TID Meclizine HCl 25 mg [Antivert 25 mg] 25 mg PO BID 06/04/19 07:15 Medication Intervention 1 each MC .RN TO CHECK WITH PT Medication Intervention 1 each MC .RN TO CLARIFY 06/04/19 08:00 Metformin HCl Xr 500 mg [Glucophage XR 500 MG] 500 mg PO DAILY@0800 06/04/19 10:00 Aspirin EC 81 mg [Ecotrin 81 mg] 81 mg PO DAILY Carvedilol 3.125 mg [Coreg 3.125 MG] 3.125 mg PO DAILY Clopidogrel Bisulfate 75 mg [PLAVIX 75 MG Tablet] 75 mg PO DAILY Potassium Chloride 10 Meq Tab* [Klor Con 10 MEQ] 10 meq PO DAILY Simvastatin 10 mg [Zocor 10MG] 10 mg PO DAILY Lab Tests 06/03/19 06/03/19 06/03/19 11:16 11:16 11:16 WBC 8.8 RBC 3.41 L Hgb 9.6 L Hct 30.3 L MCV 88.9 MCH 28.2 MCHC 31.7 L RDW 14.3 H Plt Count 273 MPV 11.0 Gran % 60.2 Eos # (Auto) 0.57 H Absolute Lymphs (auto) 2.04 Absolute Monos (auto) 0.85 Lymphocytes % 23.3 L Monocytes % 9.7 Eosinophils % 6.5 H Basophils % 0.3 Absolute Granulocytes 5.27 Basophils # 0.03 PT 12.4 H INR 1.10 D-Dimer Puncture Site pCO2 pO2 Base Excess O2 Saturation ABG pH ABG HCO3 ABG O2 Sat (Measured) Ar Test A-a Gradient a/A Ratio Hemoglobin Carboxyhemoglobin Methemoglobin POC O2 Flow Rate Sodium 138 Potassium 4.0 Chloride 98 Carbon Dioxide 30 Anion Gap 14.1 BUN 17 Creatinine 0.58 Estimated GFR > 60.0 Glucose 425 H Lactic Acid Calcium 9.3 Total Bilirubin 0.50 AST 40 H ALT 16 Alkaline Phosphatase 90 Troponin I NT-Pro-B Natriuret Pep 28998 H Serum Total Protein 7.3 Albumin 3.8 Slides for Path Review 06/03/19 06/03/19 06/03/19 11:16 12:11 12:15 WBC RBC Hgb Hct MCV MCH MCHC RDW Plt Count MPV Gran % Eos # (Auto) Absolute Lymphs (auto) Absolute Monos (auto) Lymphocytes % Monocytes % Eosinophils % Basophils % Absolute Granulocytes Basophils # PT INR D-Dimer Puncture Site lr pCO2 57 H pO2 43 L* Base Excess -4.5 L O2 Saturation 71 L ABG pH 7.23 L* ABG HCO3 23.9 ABG O2 Sat (Measured) 69 L Ar Test yES A-a Gradient 142 a/A Ratio 0.23 Hemoglobin 10.6 Carboxyhemoglobin 1.4 Methemoglobin 0.4 L POC O2 Flow Rate 36 Sodium Potassium 4.1 Chloride Carbon Dioxide 25 Anion Gap BUN Creatinine Estimated GFR Glucose Lactic Acid 5.6 H Calcium Total Bilirubin AST ALT Alkaline Phosphatase Troponin I 0.026 NT-Pro-B Natriuret Pep Serum Total Protein Albumin Slides for Path Review 06/03/19 06/03/19 06/03/19 12:27 15:10 16:03 WBC RBC Hgb Hct MCV MCH MCHC RDW Plt Count MPV Gran % Eos # (Auto) Absolute Lymphs (auto) Absolute Monos (auto) Lymphocytes % Monocytes % Eosinophils % Basophils % Absolute Granulocytes Basophils # PT INR D-Dimer 1577 H* Puncture Site pCO2 pO2 Base Excess O2 Saturation ABG pH ABG HCO3 ABG O2 Sat (Measured) Ar Test A-a Gradient a/A Ratio Hemoglobin Carboxyhemoglobin Methemoglobin POC O2 Flow Rate Sodium Potassium Chloride Carbon Dioxide Anion Gap BUN Creatinine Estimated GFR Glucose Lactic Acid 1.7 Calcium Total Bilirubin AST ALT Alkaline Phosphatase Troponin I 0.052 H* NT-Pro-B Natriuret Pep Serum Total Protein Albumin Slides for Path Review 06/04/19 06/04/19 05:00 05:00 WBC 8.8 RBC 3.28 L Hgb 9.0 L Hct 29.1 L MCV 88.7 MCH 27.4 MCHC 30.9 L RDW 14.3 H Plt Count 227 MPV 11.6 H Gran % 49.3 Eos # (Auto) 0.71 H Absolute Lymphs (auto) 2.78 Absolute Monos (auto) 0.96 Lymphocytes % 31.5 Monocytes % 10.9 Eosinophils % 8.0 H Basophils % 0.3 Absolute Granulocytes 4.34 Basophils # 0.03 PT INR D-Dimer Puncture Site pCO2 pO2 Base Excess O2 Saturation ABG pH ABG HCO3 ABG O2 Sat (Measured) Ar Test A-a Gradient a/A Ratio Hemoglobin Carboxyhemoglobin Methemoglobin POC O2 Flow Rate Sodium 139 Potassium 3.1 L D Chloride 100 Carbon Dioxide 30 Anion Gap 12.4 BUN 17 Creatinine 0.50 L Estimated GFR > 60.0 Glucose 102 Lactic Acid Calcium 8.6 Total Bilirubin 0.40 AST 38 H ALT 15 Alkaline Phosphatase 67 Troponin I NT-Pro-B Natriuret Pep Serum Total Protein 6.3 Albumin 3.1 L Slides for Path Review YES Code(s): R79.89 - OTHER SPECIFIED ABNORMAL FINDINGS OF BLOOD CHEMISTRY (2) CAD (coronary artery disease) Current Visit: Yes Status: Acute Qualifiers: Coronary Disease-Associated Artery/Lesion type: [place] artery Code(s): I25.10 - ATHSCL HEART DISEASE OF [place] CORONARY ARTERY W/O ANG PCTRS (3) CHF (congestive heart failure), NYHA class III Current Visit: Yes Status: Acute Qualifiers: Congestive heart failure type: combined Congestive heart failure chronicity : acute on chronic Qualified Code(s): I50.43 - Acute on chronic combined systolic (congestive) and diastolic (congestive) heart failure Code(s): I50.9 - HEART FAILURE, UNSPECIFIED (4) Hyperglycemia due to type 2 diabetes mellitus Current Visit: Yes Status: Acute Qualifiers: Diabetes mellitus fpc insulin use: with fpc use Code(s): E11.65 - TYPE 2 DIABETES MELLITUS WITH HYPERGLYCEMIA (5) NSTEMI (non-ST elevated myocardial infarction) Current Visit: Yes Status: Acute Code(s): I21.4 - NON-ST ELEVATION (NSTEMI) MYOCARDIAL INFARCTION
[2019-06-04] MEDS ORDERED: Ecotrin 325 MG PO SCH (10:00)
[2019-06-04] MEDS: Klor Con 10 MEQ PO SCH (10:16)
[2019-06-04 11:58] LABS: Appearance CLEAR (CLEAR); Bilirubin NEGATIVE (NEGATIVE); Blood NEGATIVE Ery/ul (0-5); Glucose >=500 mg/dL (NEGATIVE); Ketones TRACE (NEGATIVE); Leukocyte Esterase NEGATIVE (NEGATIVE); Nitrite NEGATIVE (NEGATIVE); Protein,Urine Dip NEGATIVE (Negative); Specific Gravity 1.018 (1.005-1.025); Urobilinogen NEGATIVE mg/dL (0-1)
[2019-06-04] MEDS: Lantus Insulin SQ SCH (13:02)
[2019-06-04] MEDS: Sodium Chloride 0.9% 1000 ML 1,000 ML IV SCH (14:02)
[2019-06-04] MEDS ORDERED: Klor Con 10 MEQ PO ONE (21:00)
[2019-06-05] MEDS: Ativan 2 MG/1 ML VIAL IV PRN (03:59)
[2019-06-05] MEDS: Lasix 40 MG/4 ML IV SCH ×2 (03:59→15:38)
[2019-06-05 05:38] LABS: BLOOD UREA NITROGEN 11 mg/dL (7-17); CHLORIDE 94 mmol/L (98-107); Calcium 8.5 mg/dL (8.4-10.2); Carbon Dioxide 33 mmol/L (22-30); Creatinine 1 0.54 mg/dL (0.52-1.04); Glucose 255 mg/dL (74-106); Potassium 3.3 mmol/L (3.5-5.1); SODIUM 137 mmol/L (137-145)
[2019-06-05] MEDS: ECOTRIN 81 MG PO SCH (09:21)
[2019-06-05] MEDS: Neurontin 400 MG PO SCH ×3 (09:21→22:54)
[2019-06-05] MEDS: Lantus Insulin SQ SCH (09:22)
[2019-06-05] MEDS: ANTIVERT 25 MG PO SCH ×2 (09:22→22:54)
[2019-06-05] MEDS: Zocor 10MG PO SCH (09:22)
[2019-06-05] MEDS: Coreg 3.125 MG PO SCH (09:22)
[2019-06-05] MEDS: PLAVIX 75 MG Tablet PO SCH (09:22)
[2019-06-05] MEDS: Klor Con 10 MEQ PO SCH (09:22)
[2019-06-05] MEDS: Glucophage XR 500 MG PO SCH (09:22)
[2019-06-05] MEDS: NovoLIN R SQ PRN ×3 (09:23→22:58)
[2019-06-05] MEDS: Sodium Chloride 0.9% 1000 ML 1,000 ML IV SCH (09:27)
[2019-06-05 11:19] LABS: ALBUMIN 3.7 g/dL (3.5-5.0); ALKALINE PHOSPHATASE 84 U/L (38-126); BLOOD UREA NITROGEN 11 mg/dL (7-17); CHLORIDE 97 mmol/L (98-107); Calcium 8.3 mg/dL (8.4-10.2); Carbon Dioxide 33 mmol/L (22-30); Creatinine 1 0.53 mg/dL (0.52-1.04); Glucose 353 mg/dL (74-106); Potassium 3.5 mmol/L (3.5-5.1); SGOT/AST 36 U/L (14-36); SGPT/ALT 15 U/L (0-35); SODIUM 138 mmol/L (137-145); Total Protein 7.3 g/dL (6.3-8.2)
[2019-06-05 11:20] LABS: Hematocrit 33.3 % (35-47); Hemoglobin 10.3 gm/dl (12.0-16.0); Mean Cell Volume 89.5 fl (78-100); Mean Corpuscular Hemoglobin 27.7 pg (26-32); Mean Corpuscular Hgb Concent. 30.9 g/dl (32-36); Mean Platelet Volume 10.8 fl (7.5-11.0); Platelet Count 303 K/mm3 (150-450); Red Blood Count 3.72 M/mm3 (4.1-5.4); Red Cell Distribution Width 14.5 % (11.5-14.0)
--- NOTE | 2019-06-05 14:12 | PCM.NOTE ---
Date and Time: 06/05/19 141 Subjective Assessment: doing ok - Review of Systems Constitutional: No Fever, No Chills Eyes: No Symptoms Ears, Nose, & Throat: No Symptoms Respiratory: No Cough, No Short Of Breath Cardiac: No Chest Pain, No Edema, No Syncope Abdominal/Gastrointestinal: No Abdominal Pain, No Nausea, No Vomiting, No Diarrhea Genitourinary Symptoms: No Dysuria Musculoskeletal: No Back Pain, No Neck Pain Skin: No Rash Neurological: No Dizziness, No Focal Weakness, No Sensory Changes Psychological: No Symptoms Endocrine: No Symptoms Hematologic/Lymphatic: No Symptoms Immunological/Allergic: No Symptoms Objective Exam General Appearance: no apparent distress, alert Neurologic Exam: alert, oriented x 3, cooperative, normal mood/affect, nml cerebellar function, sensation nml, No motor deficits Skin Exam: normal color, warm, dry Eye Exam: PERRL, EOMI, eyes nml inspection Ears, Nose, Throat Exam: normal ENT inspection, pharynx normal, moist mucous membranes Neck Exam: normal inspection, non-tender, supple, full range of motion Respiratory Exam: normal breath sounds, lungs clear, No respiratory distress Cardiovascular Exam: regular rate/rhythm, normal heart sounds Gastrointestinal/Abdomen Exam: soft, No tenderness, No mass Extremity Exam: normal inspection, normal range of motion Back Exam: normal inspection, normal range of motion, No CVA tenderness, No vertebral tenderness Pelvic Exam: deferred Rectal Exam: deferred OBJECTIVE DATA Vital Signs: Vital Signs - 24 hr Temp Pulse Resp BP Pulse Ox 06/05/19 07:52 98.0 F 71 18 130/60 92 L 06/05/19 07:30 94 L 06/05/19 07:03 97 06/05/19 03:36 98.5 F 75 18 167/72 92 L 06/05/19 00:00 98.8 F 80 17 163/70 97 06/04/19 21:00 94 L 06/04/19 20:00 98.2 F 76 17 143/61 93 L 06/04/19 16:00 98.3 F 71 18 129/57 96 Oxygen-Last 24 hours O2 Percentage 3 Liters = 32% Pain Assessment - Last Documented Pain Intensity 0 Pain Scale Used 0-10 Pain Scale Intake and Output: Intake & Output 06/03/19 06/04/19 06/05/19 06/06/19 11:59 11:59 11:59 11:59 Intake Total 6149 1455 168 Output Total 2749 9033 Balance -1779 -1607 240 Weight 59.874 kg 57.3 kg 57.1 kg Lab Results: Accuchecks Date 06/05/19 Date 06/05/19 Date 06/05/19 Date 06/05/19 Date 06/04/19 Date 06/04/19 Time 11:30 Time 11:30 Time 07:30 Time 03:45 Time 22:00 Time 16:30 Accucheck Value: 325 Accucheck Value: 325 Accucheck Value: 263 Accucheck Value: 233 Accucheck Value: 250 Accucheck Value: 262 Lab Results-Last 24 Hours 06/04/19 06/05/19 06/05/19 Range/Units Unknown 05:24 11:06 WBC 6.0 (4.0-10.5) K/mm3 RBC 3.72 L (4.1-5.4) M/mm3 Hgb 10.3 L (12.0-16.0) gm/dl Hct 33.3 L (35-47) % MCV 89.5 (78-100) fl MCH 27.7 (26-32) pg MCHC 30.9 L (32-36) g/dl RDW 14.5 H (11.5-14.0) % Plt Count 303 (150-450) K/mm3 MPV 10.8 (7.5-11.0) fl Sodium 137 (137-145) mmol/L Potassium 3.3 L (3.5-5.1) mmol/L Chloride 94 L (98-107) mmol/L Carbon Dioxide 33 H (22-30) mmol/L Anion Gap 13.0 (5-15) MEQ/L BUN 11 (7-17) mg/dL Creatinine 0.54 (0.52-1.04) mg/dL Estimated GFR > 60.0 ML/MIN Glucose 255 H (74-106) mg/dL Hemoglobin A1c 12.07 H (4.5-6.0) % Calcium 8.5 (8.4-10.2) mg/dL Total Bilirubin (0.2-1.3) mg/dL AST (14-36) U/L ALT (0-35) U/L Alkaline Phosphatase (38-126) U/L Serum Total Protein (6.3-8.2) g/dL Albumin (3.5-5.0) g/dL 06/05/19 Range/Units 11:06 WBC (4.0-10.5) K/mm3 RBC (4.1-5.4) M/mm3 Hgb (12.0-16.0) gm/dl Hct (35-47) % MCV (78-100) fl MCH (26-32) pg MCHC (32-36) g/dl RDW (11.5-14.0) % Plt Count (150-450) K/mm3 MPV (7.5-11.0) fl Sodium 138 (137-145) mmol/L Potassium 3.5 (3.5-5.1) mmol/L Chloride 97 L (98-107) mmol/L Carbon Dioxide 33 H (22-30) mmol/L Anion Gap 11.0 (5-15) MEQ/L BUN 11 (7-17) mg/dL Creatinine 0.53 (0.52-1.04) mg/dL Estimated GFR > 60.0 ML/MIN Glucose 353 H (74-106) mg/dL Hemoglobin A1c (4.5-6.0) % Calcium 8.3 L (8.4-10.2) mg/dL Total Bilirubin 0.40 (0.2-1.3) mg/dL AST 36 (14-36) U/L ALT 15 (0-35) U/L Alkaline Phosphatase 84 (38-126) U/L Serum Total Protein 7.3 (6.3-8.2) g/dL Albumin 3.7 (3.5-5.0) g/dL Radiology Exams: Radiology Procedures Category Date Time Status CHEST WITH CONTRAST [CT] Stat Exams 06/03/19 13:32 Completed Multi-Disciplinary Progress Notes: Multi-Disciplinary Progress Notes 06/05/19 11:11 Case Management Note by Marce Tovar UPDATE FAXED TO [facility] THEY REPORT THAT INSURANCE IS REQUESTING ADDNL DOCUMENTATION. Initialized on 06/05/19 11:11 - END OF NOTE Assessment/Plan (1) Elevated troponin I level Current Visit: Yes Status: Resolved Code(s): R79.89 - OTHER SPECIFIED ABNORMAL FINDINGS OF BLOOD CHEMISTRY (2) CAD (coronary artery disease) Current Visit: Yes Status: Acute Qualifiers: Coronary Disease-Associated Artery/Lesion type: [place] artery Code(s): I25.10 - ATHSCL HEART DISEASE OF [place] CORONARY ARTERY W/O ANG PCTRS (3) CHF (congestive heart failure), NYHA class III Current Visit: Yes Status: Acute Qualifiers: Congestive heart failure type: combined Congestive heart failure chronicity : acute on chronic Qualified Code(s): I50.43 - Acute on chronic combined systolic (congestive) and diastolic (congestive) heart failure Code(s): I50.9 - HEART FAILURE, UNSPECIFIED (4) Hyperglycemia due to type 2 diabetes mellitus Current Visit: Yes Status: Acute Qualifiers: Diabetes mellitus detention insulin use: with supervisor intermediates use Qualified Code( s): E11.65 - Type 2 diabetes mellitus with hyperglycemia; 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
[2019-06-06] MEDS ORDERED: Lasix 40 MG PO ONE (05:00)
[2019-06-06] MEDS ORDERED: Lasix 40 MG ONE (05:19)
[2019-06-06] MEDS: Lasix 40 MG/4 ML IV SCH (06:35)
[2019-06-06 08:06] VITALS: BP 106/49; PULSE 81; O2SAT 90
[2019-06-06] MEDS: ANTIVERT 25 MG PO SCH (08:43)
[2019-06-06] MEDS: PLAVIX 75 MG Tablet PO SCH (08:43)
[2019-06-06] MEDS: ECOTRIN 81 MG PO SCH (08:44)
[2019-06-06] MEDS: Neurontin 400 MG PO SCH (08:44)
[2019-06-06] MEDS: Glucophage XR 500 MG PO SCH (08:44)
[2019-06-06] MEDS: Lantus Insulin SQ SCH (08:44)
[2019-06-06] MEDS: Coreg 3.125 MG PO SCH (08:44)
[2019-06-06] MEDS: Klor Con 10 MEQ PO SCH (08:44)
[2019-06-06] MEDS: Zocor 10MG PO SCH (08:44)
== END 2019-06-06 10:07 | DRG 947 ==
LOC: ED 10:40 → MED SURG 15:25
PROVIDERS: ADMIT General Practice; ATTEND General Practice
DX: R79.89 Other specified abnormal findings of blood chemistry (principal); I21.4 Non-ST elevation (NSTEMI) myocardial infarction; R07.9 Chest pain, unspecified; I25.10 Atherosclerotic heart disease of native coronary artery without angina pectoris; I50.9 Heart failure, unspecified; E11.65 Type 2 diabetes mellitus with hyperglycemia; Z79.899 Other long term (current) drug therapy; Z79.01 Long term (current) use of anticoagulants
CPT/HCPCS: 36000; 36415; 36600; 51702; 71045; 71260; 80048; 80053; 81001; 82375; 82803; 82962; 83036; 83605; 83880; 84484; 85025; 85027; 85379; 85610; 87086; 93005; 94760; 96374; 96375; 99285; 99291; 99292; J1940; J2060; A9270-GY

== ENCOUNTER 2019-12-05 08:14 | Emergency (ER) | payer MEDICARE ==
--- NOTE | 2019-12-05 08:16 | ERPHSYRPT ---
- History of Present Illness Time Seen by Provider: 12/05/19 08:16 Source: patient, EMS Exam Limitations: clinical condition Physician History: This is an 89-year-old white female patient of Dr. Anderson, who has a history of coronary artery disease, hyperglycemia, hypokalemia, anemia and CHF as well as insulin-dependent diabetes who presents with shortness of air that began this morning. She also has associated intermittent chest pain with deep inspiration. Patient is on Plavix. Patient lives alone and her daughter visits the home frequently. Patient's room air oxygenation was 66% per EMS upon their arrival. Patient was placed on CPAP, given Solu-Medrol and 40 mg of Lasix intravenously. Patient was also given nitroglycerin sublingually. Patient states that she has been out of her Lasix for several days. Patient arrives with improvement in her symptoms both subjectively and objectively. Patient has not taken her morning medication Timing/Duration: today Activities at Onset: none Severity of Dyspnea-Max: moderate Severity of Dyspnea-Current: moderate Possible Cause: occasional episodes Modifying Factors: Improves With: oxygen (Improved) Associated Symptoms: intermittent, anxiety, chest pain/discomfort Allergies/Adverse Reactions: fentanyl Allergy (Verified 12/05/19 08:34) promethazine HCl [From Phenergan] Adverse Reaction (Mild, Verified 12/05/19 08:33) hallucinating Home Medications: Aspirin EC 325 mg [Ecotrin 325 MG] 81 mg PO DAILY 11/11/11 [History] Gabapentin 300 mg [Neurontin 300 mg] 400 mg PO TID 11/11/11 [History] Meclizine HCl 25 mg [Antivert 25 mg] 25 mg PO BID 12/07/18 [History] Atorvastatin Calcium [Lipitor] 10 mg DAILY 06/03/19 [History] Carvedilol 3.125 mg [Coreg 3.125 MG] 1 tab DAILY 06/03/19 [History] Clopidogrel Bisulfate [Clopidogrel] 75 mg DAILY 06/03/19 [History] Insulin Glargine [Lantus Insulin] 15 unit SQ DAILY 06/04/19 [History] Isosorbide Mononitrate 30 mg [Imdur 30 MG] 1 ea DAILY 12/05/19 [History] Hx Tetanus, Diphtheria Vaccination/Date Given: No Hx Influenza Vaccination/Date Given: Yes Hx Pneumococcal Vaccination/Date Given: No Travel Risk - International Travel Have you traveled outside of the country in past 3 weeks: No - Coronavirus Screening Symptoms: Shortness of Breath - Review of Systems Constitutional: No Symptoms Eyes: No Symptoms Ears, Nose, & Throat: No Symptoms Respiratory: Dyspnea Cardiac: Chest Pain Abdominal/Gastrointestinal: No Symptoms Genitourinary Symptoms: No Symptoms Musculoskeletal: No Symptoms Skin: No Symptoms Neurological: No Symptoms Psychological: No Symptoms Endocrine: No Symptoms Hematologic/Lymphatic: No Symptoms Immunological/Allergic: No Symptoms All Other Systems: Reviewed and Negative - Past Medical History Pertinent Past Medical History: Yes Neurological History: Dementia ENT History: Cataracts Cardiac History: No Pertinent History Respiratory History: No Pertinent History Endocrine Medical History: Diabetes Type II Musculoskeletal History: No Pertinent History, Osteoporosis GI Medical History: No Pertinent History History: No Pertinent History Psycho-Social History: Depression Female Reproductive Disorders: No Pertinent History - Past Surgical History Past Surgical History: Yes Neuro Surgical History: No Pertinent History Cardiac: No Pertinent History Respiratory: No Pertinent History Gastrointestinal: Appendectomy, Cholecystectomy Musculoskeletal: No Pertinent History Female Surgical History: Hysterectomy - Social History Smoking Status: Never smoker Exposure to second hand smoke: No Drug Use: none Patient Lives Alone: Yes - Nursing Vital Signs Nursing Vital Signs: Initial Vital Signs Pulse Rate 84 12/05/19 08:15 Respiratory Rate 20 12/05/19 08:15 Blood Pressure 177/70 12/05/19 08:15 O2 Sat by Pulse Oximetry 100 12/05/19 08:15 Pain Scale Pain Intensity 0 - Physical Exam General Appearance: moderate distress, alert, anxiety, thin Eye Exam: PERRL/EOMI, eyes nml inspection Ears, Nose, Throat Exam: hearing grossly normal, normal ENT inspection, normal pharynx Neck Exam: normal inspection, non-tender, supple, full range of motion Respiratory Exam: normal breath sounds, respiratory distress (Mild), airway intact, No chest tenderness, No lungs clear Cardiovascular/Chest Exam: normal heart sounds, regular rate/rhythm, normal peripheral pulses, No murmur Abdominal/Gastrointestinal Exam: soft, normal bowel sounds, No tenderness Rectal Exam: not done Extremity Exam: non-tender, normal range of motion, normal inspection Neurologic Exam: alert, oriented x 3, cooperative, jigman II-XII nml as tested Skin Exam: normal color, warm, dry Lymphatic Exam: No adenopathy SpO2 Interpretation: hypoxic O2 Delivery: BiPap/CPAP - Course Nursing assessment & vital signs reviewed: Yes EKG Interpreted by Me: RATE (80), Sinus Rhythm, NORMAL AXIS, NORMAL INTERVALS, NORMAL QRS, Other (Comparison EKG was performed on June 03, 2019. There is resolution of first-degree AV block. However, there is some borderline ST depression in the lateral leads. I do not appreciate any acute ischemic changes) Ordered Tests: Active Orders 24 hr Category Date Time Status Logistic Specialist STAT Care 12/05/19 08:28 Active EKG-ER Only STAT Care 12/05/19 08:26 Active IV Insertion STAT Care 12/05/19 08:26 Active CHEST 1 VIEW (PORTABLE) Stat Exams 12/05/19 08:27 Completed ABG [ARTERIAL BLOOD GASES] Stat Lab 12/05/19 08:17 Completed CBC W DIFF Stat Lab 12/05/19 08:20 Completed CMP Stat Lab 12/05/19 08:20 Completed Lactic Acid Stat Lab 12/05/19 08:17 Completed MAGNESIUM Stat Lab 12/05/19 08:20 Completed NT PRO BNP Stat Lab 12/05/19 08:20 Completed TROPONIN Q3H Lab 12/05/19 08:20 Completed TROPONIN Q3H Lab 12/05/19 11:30 Ordered TROPONIN Q3H Lab 12/05/19 14:30 Ordered TROPONIN Q3H Lab 12/05/19 17:30 Ordered TROPONIN Q3H Lab 12/05/19 20:30 Ordered BiPap/CPAP STAT RT 12/05/19 08:37 Active Oxygen NASAL CANNULA 2 lpm RT 12/05/19 08:42 Active Lab/Rad Data: Laboratory Result Diagrams 12/05/19 08:20 12/05/19 08:20 Laboratory Results 12/05/19 12/05/19 12/05/19 Range/Units 08:20 08:20 08:20 WBC 6.4 (4.0-10.5) K/mm3 RBC 3.50 L (4.1-5.4) M/mm3 Hgb 8.4 L (12.0-16.0) gm/dl Hct 28.9 L (35-47) % MCV 82.6 (78-100) fl MCH 24.0 L (26-32) pg MCHC 29.1 L (32-36) g/dl RDW 15.7 H (11.5-14.0) % Plt Count 195 (150-450) K/mm3 MPV 11.6 H (7.5-11.0) fl Gran % 33.4 L (36.0-66.0) % Eos # (Auto) 0.51 H (0-0.5) Absolute Lymphs (auto) 3.25 (1.0-4.6) Absolute Monos (auto) 0.45 (0.0-1.3) Lymphocytes % 51.2 H (24.0-44.0) % Monocytes % 7.1 (0.0-12.0) % Eosinophils % 8.0 H (0.00-5.0) % Basophils % 0.3 (0.0-0.4) % Absolute Granulocytes 2.12 (1.4-6.9) Basophils # 0.02 (0-0.4) Puncture Site pCO2 (35-45) mmHg pO2 (75-100) mmHg Base Excess (-2.0-2.0) O2 Saturation (94-100) g/dF ABG pH (7.35-7.45) ABG HCO3 (22-28) ABG O2 Sat (Measured) (95-100) % Ar Test A-a Gradient a/A Ratio Hemoglobin Carboxyhemoglobin (0.0-6.9) % THgb Methemoglobin (1.4-1.5) % Potassium 4.5 (3.5-5.1) Temperature C POC O2 Flow Rate % Sodium 138 (137-145) mmol/L Chloride 102 (98-107) mmol/L Carbon Dioxide 25 (22-30) mmol/L Anion Gap 14.6 (5-15) MEQ/L BUN 10 (7-17) mg/dL Creatinine 0.54 (0.52-1.04) mg/dL Estimated GFR > 60.0 ML/MIN Glucose 429 H (74-106) mg/dL Lactic Acid (0.4-2.0) Calcium 9.5 (8.4-10.2) mg/dL Magnesium 1.9 (1.6-2.3) mg/dL Total Bilirubin 0.40 (0.2-1.3) mg/dL AST 103 H (14-36) U/L ALT 20 (0-35) U/L Alkaline Phosphatase 111 (38-126) U/L Troponin I < 0.012 (0.000-0.034) ng/mL NT-Pro-B Natriuret Pep 956 (0-1800) pg/mL Serum Total Protein 7.3 (6.3-8.2) g/dL Albumin 4.0 (3.5-5.0) g/dL 12/05/19 Range/Units 08:17 WBC (4.0-10.5) K/mm3 RBC (4.1-5.4) M/mm3 Hgb (12.0-16.0) gm/dl Hct (35-47) % MCV (78-100) fl MCH (26-32) pg MCHC (32-36) g/dl RDW (11.5-14.0) % Plt Count (150-450) K/mm3 MPV (7.5-11.0) fl Gran % (36.0-66.0) % Eos # (Auto) (0-0.5) Absolute Lymphs (auto) (1.0-4.6) Absolute Monos (auto) (0.0-1.3) Lymphocytes % (24.0-44.0) % Monocytes % (0.0-12.0) % Eosinophils % (0.00-5.0) % Basophils % (0.0-0.4) % Absolute Granulocytes (1.4-6.9) Basophils # (0-0.4) Puncture Site RIGHT RADIAL pCO2 43 (35-45) mmHg pO2 189 H* (75-100) mmHg Base Excess 0.8 (-2.0-2.0) O2 Saturation 97.7 (94-100) g/dF ABG pH 7.39 (7.35-7.45) ABG HCO3 26.0 (22-28) ABG O2 Sat (Measured) 98.9 (95-100) % Ar Test YES A-a Gradient 470 a/A Ratio 0.29 Hemoglobin 8.4 Carboxyhemoglobin 0.3 (0.0-6.9) % THgb Methemoglobin 0.9 L (1.4-1.5) % Potassium 4.4 (3.5-5.1) Temperature 37.0 C POC O2 Flow Rate 100 % Sodium (137-145) mmol/L Chloride (98-107) mmol/L Carbon Dioxide (22-30) mmol/L Anion Gap (5-15) MEQ/L BUN (7-17) mg/dL Creatinine (0.52-1.04) mg/dL Estimated GFR ML/MIN Glucose (74-106) mg/dL Lactic Acid 1.4 (0.4-2.0) Calcium (8.4-10.2) mg/dL Magnesium (1.6-2.3) mg/dL Total Bilirubin (0.2-1.3) mg/dL AST (14-36) U/L ALT (0-35) U/L Alkaline Phosphatase (38-126) U/L Troponin I (0.000-0.034) ng/mL NT-Pro-B Natriuret Pep (0-1800) pg/mL Serum Total Protein (6.3-8.2) g/dL Albumin (3.5-5.0) g/dL - Progress Progress: improved Air Movement: good Progress Note: 12/05/19 08:41 Patient symptoms have drastically improved upon her arrival. Patient is smiling and laughing she is now oxygenating 100% on nasal cannula. Patient refusing a [place] catheter. 12/05/19 09:46 pt doing very well. she denies cp and soa. pt doesnt want admission or transfer. she will sign an ama. Blood Culture(s) Obtained: No Antibiotics given: No Counseled pt/family regarding: lab results, diagnosis, need for follow-up, rad results - Departure Departure Disposition: AMA Clinical Impression: CHF (congestive heart failure), Shortness of breath, Hyperglycemia Condition: Stable Critical Care Time: No Referrals: PETRA ANDERSON MD [Primary Care Provider] - Instructions: Heart Failure
[2019-12-05 08:21] VITALS: BP 177/70
[2019-12-05 08:26] LABS: A-aADO2 470; ABG HEMOGLOBIN 8.4; ABG POTASSIUM 4.4 (3.5-5.1); ARTERIAL BLD GAS O2 SATURATION 98.9 % (95-100); ARTERIAL BLOOD GAS BASE EXCESS 0.8 (-2.0-2.0); ARTERIAL BLOOD GAS FIO2 100 %; ARTERIAL BLOOD GAS PCO2 43 mmHg (35-45); ARTERIAL BLOOD GAS PO2 189 mmHg (75-100); ARTERIAL BLOOD GAS pH 7.39 (7.35-7.45); CARBOXYHEMOGLOBIN 0.3 % THgb (0.0-6.9); HGB O2 SAT 97.7 g/dF (94-100); Lactic Acid 1.4 (0.4-2.0); Methhemoglobin 0.9 % (1.4-1.5); paO2 pAO1 0.29
[2019-12-05 08:27] LABS: ABG SITE RIGHT RADIAL; ALLEN TEST OK? YES
[2019-12-05 08:34] LABS: Absolute Neutrophil Ct (ANC) 2.12 (1.4-6.9); BASOPHIL % 0.3 % (0.0-0.4); Basophil (Absolute #) 0.02 (0-0.4); Eosinophil (Absolute #) 0.51 (0-0.5); Hematocrit 28.9 % (35-47); Hemoglobin 8.4 gm/dl (12.0-16.0); Lymphocyte (Absolute #) 3.25 (1.0-4.6); Lymphocytes % 51.2 % (24.0-44.0); Mean Cell Volume 82.6 fl (78-100); Mean Corpuscular Hgb Concent. 29.1 g/dl (32-36); Mean Platelet Volume 11.6 fl (7.5-11.0); Monocyte (Absolute #) 0.45 (0.0-1.3); Monocytes % 7.1 % (0.0-12.0); Neutrophil % 33.4 % (36.0-66.0); Platelet Count 195 K/mm3 (150-450); Red Cell Distribution Width 15.7 % (11.5-14.0); White Blood Count 6.4 K/mm3 (4.0-10.5)
--- NOTE | 2019-12-05 08:51 | XRAY ---
Indication: Chest pain and short of breath. Comparison: June 03, 2019. Portable chest again demonstrates cardiomegaly, interstitial edema, and tiny bibasilar effusions concerning for cardiac decompensation. Bony thorax intact again with osteopenia and degenerative changes.
[2019-12-05 09:15] LABS: ALKALINE PHOSPHATASE 111 U/L (38-126); ANION GAP 14.6 MEQ/L (5-15); BLOOD UREA NITROGEN 10 mg/dL (7-17); CHLORIDE 102 mmol/L (98-107); Calcium 9.5 mg/dL (8.4-10.2); Carbon Dioxide 25 mmol/L (22-30); Creatinine 1 0.54 mg/dL (0.52-1.04); Glucose 429 mg/dL (74-106); MAGNESIUM 1.9 mg/dL (1.6-2.3); NT PRO BNP 956 pg/mL (0-1800); Potassium 4.5 mmol/L (3.5-5.1); SGOT/AST 103 U/L (14-36); SGPT/ALT 20 U/L (0-35); SODIUM 138 mmol/L (137-145); Total Protein 7.3 g/dL (6.3-8.2)
[2019-12-05 09:22] VITALS: PULSE 86; O2SAT 94
== END 2019-12-05 11:00 | disposition home or self-care (01) ==
LOC: ED 08:14
DX: I50.9 Heart failure, unspecified (principal); R06.02 Shortness of breath; E11.65 Type 2 diabetes mellitus with hyperglycemia; M81.0 Age-related osteoporosis without current pathological fracture; F32.9 Major depressive disorder, single episode, unspecified; Z79.899 Other long term (current) drug therapy; I25.10 Atherosclerotic heart disease of native coronary artery without angina pectoris
CPT/HCPCS: 36000; 36415; 36600; 71045; 80053; 82375; 82803; 83605; 83735; 83880; 84484; 85025; 93005; 93041; 94660; 99284; 99291